=== PATIENT | female | born 1940 | race Caucasian/White ===

== ENCOUNTER 2022-07-20 00:37 | Emergency (ER) | payer MEDICARE ==
[2022-07-20 00:46] VITALS: TEMP 97.7
[2022-07-20] MEDS ORDERED: ASPIRIN 81 MG PO STA (01:04)
[2022-07-20] MEDS ORDERED: LORazepam 2 MG/ML INJ IV STA (01:05)
[2022-07-20 02:20] LABS: Basophils % (A) 0 %; Eosinophils % (A) 0 %; HCT 37.7 % (34.0-46.0); HGB 12.9 gm/dL (11.4-16.0); Lymphocytes # (A) 4.2 k/uL (1.0-4.8); Lymphocytes % (A) 29 %; MCH 30.7 pg (25.0-35.0); MCHC 34.1 g/dL (31.0-37.0); MCV 90.1 fL (80.0-100.0); Mean Platelet Volume 7.9; Monocytes # (A) 0.3 k/uL (0-1.0); Monocytes % (A) 2 %; Neutrophils # (A) 10.1 k/uL (1.3-7.7); Neutrophils % (A) 69 %; Platelet Count 300 k/uL (150-450); RBC 4.19 m/uL (3.80-5.40); RDW 13.5 % (11.5-15.5); WBC 14.7 k/uL (3.8-10.6)
[2022-07-20 02:24] LABS: Albumin 4.3 g/dL (3.5-5.0); Calcium 9.4 mg/dL (8.4-10.2); Magnesium 1.8 mg/dL (1.6-2.3); Potassium 4.2 mmol/L (3.5-5.1); Total Protein 6.8 g/dL (6.3-8.2)
[2022-07-20 02:30] LABS: Partial Thromboplastin Time 22.7 sec (22.0-30.0); Prothrombin Time 10.4 sec (9.0-12.0)
--- NOTE | 2022-07-20 04:40 | ED ---
General Adult HPI - General Chief complaint: Allergic Reaction Stated complaint: Leg Swelling Time Seen by Provider: 07/20/22 00:51 Source: patient Mode of arrival: wheelchair Limitations: no limitations - History of Present Illness Initial comments: Patient is an 82-year-old female presenting with concerns for ALLERGIC reaction. Patient states that earlier this evening she was having a burning rash to the bilateral legs with some swelling to the feet. She also states that she gets a diffuse burning sensation over the body. Patient has been seen in multiple urgent cares and ERs for these symptoms, she has been treated with multiple rounds of steroids and Benadryl. She states that this helps temporarily and then she has another flare up. Of note this started happening about 6 months ago about the time when patient discontinued her Zoloft. She denies any shortness of breath, palpitations, chest pain, abdominal pain, vomiting, numbne ss, tingling, weakness, headache, vision or hearing changes, - Related Data Allergies Allergy/AdvReac Type Severity Reaction Status Date / Time ciprofloxacin [From Cipro] AdvReac Rash/Hives Verified 07/20/22 00:48 nitrofurantoin AdvReac Rash/Hives Verified 07/20/22 00:48 [From Macrobid] Penicillins AdvReac Rash/Hives Verified 07/20/22 00:48 Sulfa (Sulfonamide AdvReac Rash/Hives Verified 07/20/22 00:48 Antibiotics) Review of Systems ROS Statement: Those systems with pertinent positive or pertinent negative responses have been documented in the HPI. ROS Other: All systems not noted in ROS Statement are negative. Past Medical History Past Medical History: Hyperlipidemia, Hypertension Additional Past Medical History / Comment(s): arotic stenosis, hypothyroid History of Any Multi-Drug Resistant Organisms: None Reported Past Surgical History: Cholecystectomy Past Psychological History: Anxiety Smoking Status: Former smoker Past Alcohol Use History: None Reported Past Drug Use History: None Reported General Exam Limitations: no limitations General appearance: alert, anxious Head exam: Present: atraumatic, normocephalic, normal inspection Eye exam: Present: normal appearance, EOMI. Absent: scleral icterus, periorbital swelling Neck exam: Present: normal inspection, tenderness, full ROM Respiratory exam: Present: normal lung sounds bilaterally. Absent: respiratory distress, wheezes, rales, rhonchi, stridor Cardiovascular Exam: Present: regular rate, normal rhythm, normal heart sounds. Absent: systolic murmur, diastolic murmur, rubs, gallop, clicks Extremities exam: Absent: pedal edema Neurological exam: Present: alert, oriented X3, CN II-XII intact Psychiatric exam: Present: normal affect, normal mood Skin exam: Present: warm, dry, intact, normal color. Absent: rash Course Vital Signs 07/20/22 07/20/22 00:40 05:05 Temperature 97.7 F Pulse Rate 52 L 72 Respiratory 18 16 Rate Blood Pressure 147/89 124/76 O2 Sat by Pulse 94 L 94 L Oximetry EKG Findings - EKG Comments: EKG Findings:: Sinus rhythm with occasional ectopic premature complexes. Ventricular rate 82. NC interval 182. QRS 82. QT 363. QTC 401. Left axis deviation. No acute ischemic changes. Medical Decision Making - Medical Decision Making Was pt. sent in by a medical professional or institution (, PA, WELL HEAD PUMPER, urgent care, hospital, or retirement...) When possible be specific @ -No Did you speak to anyone other than the patient for history (EMS, parent, family, police, friend...)? What history was obtained from this source @ -History supplemented by daughter Did you review nursing and triage notes (agree or disagree)? Why? @ -I reviewed and agree with nursing and triage notes Were old charts reviewed (outside hosp., previous admission, EMS record, old EKG, old radiological studies, urgent care reports/EKG's, retirement records)? Report findings @ -No old charts were reviewed Differential Diagnosis (chest pain, altered mental status, abdominal pain women, abdominal pain men, vaginal bleeding, weakness, fever, dyspnea, syncope, headache, dizziness, GI bleed, back pain, seizure, CVA, palpatations, mental health, musculoskeletal)? @ -Differential includes anxiety, ALLERGIC reaction, COPD/asthma exacerbation, ACS, this is not an all inclusive list EKG interpreted by me (3pts min.). @ -As above X-rays interpreted by me (1pt min.). @ -Chest x-ray shows no acute process. There is an elevated left hemidiaphragm with mild basilar atelectasis and no consolidation CT interpreted by me (1pt min.). @ -None done U/S interpreted by me (1pt. min.). @ -None done What testing was considered but not performed or refused? (CT, X-rays, U/S, labs)? Why? @ -None What meds were considered but not given or refused? Why? @ -None Did you discuss the management of the patient with other professionals (professionals i.e. , PA, WELL HEAD PU[employer]ER, lab, RT, psych nurse, psychotherapist social worker, backshoe person, teacher, retail loss prevention officer, case assembler)? Give summary @ -No Was smoking cessation discussed for >3mins.? @ -No Was critical care preformed (if so, how long)? @ -No Were there social determinants of health that impacted care today? How? (Homelessness, low income, unemployed, alcoholism, drug addiction, transportation, low edu. Level, literacy, decrease access to med. care, [facility], rehab)? @ -No Was there de-escalation of care discussed even if they declined (Discuss DNR or withdrawal of care, Hospice)? DNR status @ -No What co-morbidities impacted this encounter? (DM, HTN, Smoking, COPD, CAD, Cancer, CVA, ARF, Chemo, Hep., AIDS, mental health diagnosis, sleep apnea, morbid obesity)? @ -None Was patient admitted / discharged? Hospital course, mention meds given and route, prescriptions, significant lab abnormalities, going to OR and other pertinent info. @ -Patient is an 81-year-old female presenting with chief complaint of burning rash to the legs. On physical examination there is no rash or swelling to the legs. Heart and lungs are clear to auscultation. Patient appears very anxious. She notes that the symptoms started happening around the time when she discontinued her Zoloft. She admits to a burning sensation all over the body including inside of the chest. Chest x-ray shows no acute process. Negative troponin. Mild dehydration and hyponatremia. EKG shows no acute changes. Patient reports resolution of her symptoms after Ativan. Symptoms are likely due to anxiety. Shared decision making is used and patient feels comfortable discharged home at this time. Patient is instructed to follow-up with PCP. Follow-up with PCP. Report back to ER with any new or worsening symptoms. Discussed return parameters and answered all questions. Patient conveyed verbal understanding and agreed to the plan. I discussed this case in detail with my attending Dr. Wharton Undiagnosed new problem with uncertain prognosis? @ -No Drug Therapy requiring intensive monitoring for toxicity (Heparin, Nitro, Insulin, Cardizem)? @ -No Were any procedures done? @ -No Diagnosis/symptom? @ -Anxiety attack Acute, or Chronic, or Acute on Chronic? @ -Acute Uncomplicated (without systemic symptoms) or Complicated (systemic symptoms)? @ -Complicated Side effects of treatment? @ -No Exacerbation, Progression, or Severe Exacerbation? @ -No Poses a threat to life or bodily function? How? (Chest pain, [place], AL, pneumonia, PE, COPD, DKA, ARF, appy, cholecystitis, CVA, Diverticulitis, Homicidal, Suicidal, threat to staff... and all critical care pts) @ -No - Lab Data Result diagrams: 07/20/22 01:32 07/20/22 01:32 Lab Results 07/20/22 07/20/22 07/20/22 Range/Units 01:32 01:32 01:32 WBC 14.7 H (3.8-10.6) k/uL RBC 4.19 (3.80-5.40) m/uL Hgb 12.9 (11.4-16.0) gm/dL Hct 37.7 (34.0-46.0) % MCV 90.1 (80.0-100.0) fL MCH 30.7 (25.0-35.0) pg MCHC 34.1 (31.0-37.0) g/dL RDW 13.5 (11.5-15.5) % Plt Count 300 (150-450) k/uL MPV 7.9 Neutrophils % 69 % Lymphocytes % 29 % Monocytes % 2 % Eosinophils % 0 % Basophils % 0 % Neutrophils # 10.1 H (1.3-7.7) k/uL Lymphocytes # 4.2 (1.0-4.8) k/uL Monocytes # 0.3 (0-1.0) k/uL Eosinophils # 0.0 (0-0.7) k/uL Basophils # 0.0 (0-0.2) k/uL PT 10.4 (9.0-12.0) sec INR 1.0 (<1.2) APTT 22.7 (22.0-30.0) sec Sodium 122 L (137-145) mmol/L Potassium 4.2 (3.5-5.1) mmol/L Chloride 89 L (98-107) mmol/L Carbon Dioxide 19 L (22-30) mmol/L Anion Gap 14 mmol/L BUN 24 H (7-17) mg/dL Creatinine 0.77 (0.52-1.04) mg/dL Est GFR (CKD-EPI)AfAm 84 (>60 ml/min/1.73 sqM) Est GFR (CKD-EPI)NonAf 73 (>60 ml/min/1.73 sqM) Glucose 142 H (74-99) mg/dL Calcium 9.4 (8.4-10.2) mg/dL Magnesium 1.8 (1.6-2.3) mg/dL Total Bilirubin 1.0 (0.2-1.3) mg/dL AST 36 (14-36) U/L ALT 19 (4-34) U/L Alkaline Phosphatase 103 (38-126) U/L Troponin I (0.000-0.034) ng/mL Total Protein 6.8 (6.3-8.2) g/dL Albumin 4.3 (3.5-5.0) g/dL 07/20/22 Range/Units 01:32 WBC (3.8-10.6) k/uL RBC (3.80-5.40) m/uL Hgb (11.4-16.0) gm/dL Hct (34.0-46.0) % MCV (80.0-100.0) fL MCH (25.0-35.0) pg MCHC (31.0-37.0) g/dL RDW (11.5-15.5) % Plt Count (150-450) k/uL MPV Neutrophils % % Lymphocytes % % Monocytes % % Eosinophils % % Basophils % % Neutrophils # (1.3-7.7) k/uL Lymphocytes # (1.0-4.8) k/uL Monocytes # (0-1.0) k/uL Eosinophils # (0-0.7) k/uL Basophils # (0-0.2) k/uL PT (9.0-12.0) sec INR (<1.2) APTT (22.0-30.0) sec Sodium (137-145) mmol/L Potassium (3.5-5.1) mmol/L Chloride (98-107) mmol/L Carbon Dioxide (22-30) mmol/L Anion Gap mmol/L BUN (7-17) mg/dL Creatinine (0.52-1.04) mg/dL Est GFR (CKD-EPI)AfAm (>60 ml/min/1.73 sqM) Est GFR (CKD-EPI)NonAf (>60 ml/min/1.73 sqM) Glucose (74-99) mg/dL Calcium (8.4-10.2) mg/dL Magnesium (1.6-2.3) mg/dL Total Bilirubin (0.2-1.3) mg/dL AST (14-36) U/L ALT (4-34) U/L Alkaline Phosphatase (38-126) U/L Troponin I <0.012 (0.000-0.034) ng/mL Total Protein (6.3-8.2) g/dL Albumin (3.5-5.0) g/dL Disposition Clinical Impression: Anxiety attack Disposition: HOME SELF-CARE Condition: Good Instructions (If sedation given, give patient instructions): Anxiety (ED) Additional Instructions: Follow-up with PCP. Report back to ER with any new or worsening symptoms. Is patient prescribed a controlled substance at d/c from ED?: No Referrals: Carlos Moon DO [Primary Care Provider] - 1-2 days Time of Disposition: 04:40
[2022-07-20 05:06] VITALS: BP 124/76; PULSE 72; RESP 16
--- NOTE | 2022-07-20 06:53 | XR ---
EXAM: XR Chest, 2 Views CLINICAL HISTORY: ITS.REASON XR Reason: Chest Pain TECHNIQUE: Frontal and lateral views of the chest. COMPARISON: No relevant prior studies available. FINDINGS: Lungs: Elevated left hemidiaphragm with mild left base atelectasis. No consolidation. Pleural space: Unremarkable. No pneumothorax. Heart: Unremarkable. No cardiomegaly. Mediastinum: Unremarkable. Bones/joints: Unremarkable. IMPRESSION: Elevated left hemidiaphragm with mild left base atelectasis.
== END 2022-07-20 05:15 | disposition home or self-care (01) ==
LOC: SUPCPDRO 00:37 → EC 00:37
DX: F41.0 Panic disorder [episodic paroxysmal anxiety] (principal); I10 Essential (primary) hypertension; Z87.891 Personal history of nicotine dependence; Z88.0 Allergy status to penicillin; Z88.1 Allergy status to other antibiotic agents; Z88.2 Allergy status to sulfonamides; Z90.49 Acquired absence of other specified parts of digestive tract
CPT/HCPCS: 36415; 93005; 80053; 83735; 84484; 85025; 85610; 85730; 71046; 99284; 96374; J2060

== ENCOUNTER 2022-08-10 13:08 | Inpatient (IN) | payer MEDICARE ==
[2022-08-10 14:25] LABS: Basophils % (A) 0 %; Eosinophils % (A) 0 %; HCT 35.7 % (34.0-46.0); HGB 12.4 gm/dL (11.4-16.0); Lymphocytes # (A) 5.3 k/uL (1.0-4.8); MCH 32.3 pg (25.0-35.0); MCHC 34.9 g/dL (31.0-37.0); MCV 92.7 fL (80.0-100.0); Mean Platelet Volume 6.7; Monocytes # (A) 0.7 k/uL (0-1.0); Monocytes % (A) 6 %; Neutrophils # (A) 4.5 k/uL (1.3-7.7); Neutrophils % (A) 42 %; Platelet Count 288 k/uL (150-450); RBC 3.85 m/uL (3.80-5.40); WBC 10.8 k/uL (3.8-10.6)
[2022-08-10 14:36] LABS: Lactic Acid, Venous 1.6 mmol/L (0.7-2.0)
[2022-08-10 14:38] LABS: ALT 18 U/L (4-34); AST 34 U/L (14-36); African American GFR (CKD) >90 (>60 ml/min/1.73 sqM); Albumin 4.2 g/dL (3.5-5.0); Alkaline Phosphatase 109 U/L (38-126); Anion Gap 8 mmol/L; Blood Urea Nitrogen 14 mg/dL (7-17); Calcium 9.6 mg/dL (8.4-10.2); Carbon Dioxide 26 mmol/L (22-30); Chloride 88 mmol/L (98-107); Glucose 96 mg/dL (74-99); Magnesium 1.8 mg/dL (1.6-2.3); Non-African American GFR(CKD) 82 (>60 ml/min/1.73 sqM); Potassium 4.5 mmol/L (3.5-5.1); Sodium 122 mmol/L (137-145); Total Bilirubin 0.5 mg/dL (0.2-1.3); Total Protein 6.4 g/dL (6.3-8.2)
[2022-08-10 14:45] LABS: Lymphocytes % (A) 49 %
--- NOTE | 2022-08-10 14:46 | CT ---
EXAMINATION TYPE: CT brain wo con DATE OF EXAM: 08/10/2022 HISTORY: Weakness. CT DLP: 1173.4 mGycm. Automated Exposure Control for Dose Reduction was Utilized. TECHNIQUE: CT scan of the head is performed without contrast. COMPARISON: None. FINDINGS: There is no acute intracranial hemorrhage or midline shift identified. There is mild to m oderate diffuse ventricular and sulcal prominence consistent with diffuse age-related cerebral atroph y. There is fairly advanced low-attenuation in the periventricular white matter most likely consiste nt with chronic small vessel ischemic change in patient of this age. Hyperostosis frontalis is seen. The globes are intact and the visualized sinuses are clear. IMPRESSION: No acute intracranial hemorrhage or midline shift. There is mild to moderate diffuse ag e-related cerebral atrophy and moderate to severe probable chronic small vessel ischemic change noted .
--- NOTE | 2022-08-10 15:01 | XR ---
EXAMINATION TYPE: XR chest 2V DATE OF EXAM: 08/10/2022 COMPARISON: Chest x-ray July 20, 2022 HISTORY: Weakness. TECHNIQUE: Frontal and lateral views of the chest are obtained. FINDINGS: Chronic right pleural changes bilaterally with left basilar opacity remains present. The cardiac silhouette size is stable and within normal limits. Surgical clips left upper quadrant just b elow diaphragm are redemonstrated. Cholecystectomy clips are redemonstrated. The osseous structures remain demineralized. Underlying scoliosis again seen. IMPRESSION: Chronic changes with small left pleural effusion and left basilar opacity could reflect atelectasis and/or scarring. Right lung remains clear. No significant change from most recent x-ray.
[2022-08-10 15:04] LABS: Partial Thromboplastin Time 24.1 sec (22.0-30.0); Prothrombin Time 10.4 sec (9.0-12.0)
[2022-08-10 16:11] LABS: Appearance,Urine Clear (Clear); Bilirubin,Urine Negative (Negative); Blood,Urine Negative (Negative); Color,Urine Light Yellow; Glucose,Urine (UA) Negative (Negative); Ketones,Urine Negative (Negative); Leukocyte Esterase,Urine Negative (Negative); Nitrite,Urine Negative (Negative); Protein,Urine Negative (Negative); Specific Gravity,Urine 1.007 (1.001-1.035); Urobilinogen,Urine <2.0 mg/dL (<2.0)
[2022-08-10] MEDS ORDERED: SODIUM CHLORIDE 0.9% 1,000 ML IV STA ×2 (16:47)
[2022-08-10] MEDS ORDERED: NALOXONE 0.4 MG/ML 1 ML VIAL IV PRN (16:48)
[2022-08-10] MEDS ORDERED: ALBUTEROL NEBULIZED 2.5 MG/3 ML INHALATION PRN (16:49)
--- NOTE | 2022-08-10 16:54 | ED ---
General Adult HPI - General Chief complaint: Weakness Stated complaint: Abnormal Labs Time Seen by Provider: 08/10/22 14:00 Source: patient, family, RN notes reviewed, old records reviewed Mode of arrival: ambulatory Limitations: no limitations - History of Present Illness Initial comments: Patient is an 82-year-old female who presents emergency Department after he brought in by family members for hyponatremia. Patient has also had progressive memory issues as well as weakness. She is been hyponatremic for a while now since be getting worse which is why her PCP sent her in for further evaluation and admission. The remaining symptoms are all progressive been somewhat chronic. Patient denies any other acute complaints at this time. Patient's daughter is at bedside and helps with history. Presents for further evaluation at this time. Somewhat decreased appetite. - Related Data Home Medications Medication Instructions Recorded Confirmed Albuterol Sulfate [Albuterol 2 puff PO RT-Q6H PRN 08/10/22 08/10/22 Sulfate Hfa] Atorvastatin [Lipitor] 40 mg PO HS 08/10/22 08/10/22 Enalapril Maleate 10 mg PO DAILY 08/10/22 08/10/22 Levothyroxine Sodium [Synthroid] 100 mcg PO DAILY 08/10/22 08/10/22 Meloxicam [Mobic] 7.5 mg PO DAILY 08/10/22 08/10/22 Metoprolol Succinate (ER) [Toprol 25 mg PO DAILY 08/10/22 08/10/22 Xl] Montelukast [Singulair] 10 mg PO HS 08/10/22 08/10/22 Omeprazole [PriLOSEC] 20 mg PO DAILY 08/10/22 08/10/22 Sertraline [Zoloft] 50 mg PO DAILY 08/10/22 08/10/22 Umeclidinium Brm/Vilanterol Tr 1 puff INHALATION RT-DAILY 08/10/22 08/10/22 [Anoro Ellipta 62.5-25 Mcg INH] amLODIPine [Norvasc] 5 mg PO DAILY 08/10/22 08/10/22 Allergies Allergy/AdvReac Type Severity Reaction Status Date / Time ciprofloxacin [From Cipro] AdvReac Rash/Hives Verified 08/10/22 15:19 nitrofurantoin AdvReac Rash/Hives Verified 08/10/22 15:19 [From Macrobid] Penicillins AdvReac Rash/Hives Verified 08/10/22 15:19 Sulfa (Sulfonamide AdvReac Rash/Hives Verified 08/10/22 15:19 Antibiotics) Review of Systems ROS Statement: Those systems with pertinent positive or pertinent negative responses have been documented in the HPI. Review of Systems: CONST: Denies fever EYES: Denies blurry vision ENT: Denies nasal congestion C/V: Denies Chest pain RESP: Denies shortness of breath GI: Denies abdominal pain : Denies dysuria SKIN: Denies rash. MSK: Denies joint pain. NEURO: Denies headache ROS Other: All systems not noted in ROS Statement are negative. Past Medical History Past Medical History: Hyperlipidemia, Hypertension, Thyroid Disorder Additional Past Medical History / Comment(s): arotic stenosis, hypothyroid History of Any Multi-Drug Resistant Organisms: None Reported Past Surgical History: Cholecystectomy Past Psychological History: Anxiety Smoking Status: Former smoker Past Alcohol Use History: None Reported Past Drug Use History: None Reported General Exam - General Exam Comments Initial Comments: General: Appears in no acute distress. HEAD: Normal with no signs of head trauma. EYES: PERRLA, EOMI, conjunctiva normal, no discharge. Pupils 3 mm and equal bilaterally. ENT: Hearing grossly intact, normal oropharynx. RESPIRATORY: Clear breath sounds bilaterally. No wheezes, rales, or rhonchi. C/V: Regular rate and rhythm. S1 and S2 auscultated, peripheral pulses 2+ and intact throughout ABD: Abd is soft, nontender, nondistended EXT: Normal range of motion, no obvious deformity SKIN: No rashes or lesions observed on exposed skin. NEURO: Alert and oriented x 3. Cranial nerves II-XII intact. No focal sensory or strength deficits. GCS of 15. NIH of 0. Limitations: no limitations Course Vital Signs 08/10/22 08/10/22 08/10/22 13:16 15:38 18:13 Temperature 98.1 F Pulse Rate 59 L 60 58 L Respiratory 18 18 18 Rate Blood Pressure 114/68 123/71 129/71 O2 Sat by Pulse 98 98 100 Oximetry Medical Decision Making - Medical Decision Making Was pt. sent in by a medical professional or institution (, PA, LOG TURNER, urgent care, hospital, or long-term...) When possible be specific @ -Sent in by PCP for evaluation for hyponatremia Did you speak to anyone other than the patient for history (EMS, parent, family, police, friend...)? What history was obtained from this source @ -Patient's daughter is the primary historian for the patient. Did you review nursing and triage notes (agree or disagree)? Why? @ -I reviewed and agree with nursing and triage notes Were old charts reviewed (outside hosp., previous admission, EMS record, old EKG, old radiological studies, urgent care reports/EKG's, long-term records)? Report findings @ -Old charts reviewed from earlier July 2022 including EKG. Differential Diagnosis (chest pain, altered mental status, abdominal pain women, abdominal pain men, vaginal bleeding, weakness, fever, dyspnea, syncope, headache, dizziness, GI bleed, back pain, seizure, CVA, palpatations, mental health, musculoskeletal)? @ -Differential Weakness: Hypoglycemia, shock, sepsis, hyponatremia, anemia, infection, HI, ETOH, adverse medicine reaction, overdose, stroke, this is not meant to be an all-inclusive list. EKG interpreted by me (3pts min.). @ -As above X-rays interpreted by me (1pt min.). @ -Chest x-ray reveals no obvious acute cardiopulmonary process. Chronic changes seen. CT interpreted by me (1pt min.). @ -ct brain reveals no obvious acute intracranial process. Degenerative changes present. U/S interpreted by me (1pt. min.). @ -None done What testing was considered but not performed or refused? (CT, X-rays, U/S, labs)? Why? @ -None What meds were considered but not given or refused? Why? @ -None Did you discuss the management of the patient with other professionals (pro fessionals i.e. , PA, LOG TURNER, lab, RT, psych nurse, high school social studies teacher, industrial ecologist, teacher, transit authority police officer, nurse outreach case manager)? Give summary @ -Discussed with the admitting team Aleyda greer [facility] she accepted the patient. Was smoking cessation discussed for >3mins.? @ -No Was critical care preformed (if so, how long)? @ -No Were there social determinants of health that impacted care today? How? (Home lessness, low income, unemployed, alcoholism, drug addiction, transportation, low edu. Level, literacy, decrease access to med. care, [facility], rehab)? @ -No Was there de-escalation of care discussed even if they declined (Discuss DNR or withdrawal of care, Hospice)? DNR status @ -No What co-morbidities impacted this encounter? (DM, HTN, Smoking, COPD, CAD, Cancer, CVA, ARF, Chemo, Hep., AIDS, mental health diagnosis, sleep apnea, morbid obesity)? @ -None Was patient admitted / discharged? Hospital course, mention meds given and route, prescriptions, significant lab abnormalities, going to OR and other pertinent info. 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 We will obtain altered mental status workup including CT brain. Vital signs within acceptable limits. Patient is no acute point at this time. Family and patient were in agreement this plan. EKG shows no signs of acute ischemia. Imaging shows chronic CT brain degene rative findings but no acute intracranial process. Patient's labs are remarkable for a hyponatremia of 122. Hypochloremia of 88. Troponin undetectable. Remainder the labs are within acceptable limits. Slight leukocytosis of 14. On reevaluation, patient is unchanged. I updated family as well as patient regarding findings. Family was in agreement with this plan. She will be admitted at this time. Discussed some of the mental status changes likely progressive dementia. I spoke with Aleyda of [facility] who accepted the patient. She'll be given a 1 L fluid bolus and started on maintenance fluids. Undiagnosed new problem with uncertain prognosis? @ -No Drug Therapy requiring intensive monitoring for toxicity (Heparin, Nitro, Insu miriam, Cardizem)? @ -No Were any procedures done? @ -No Diagnosis/symptom? @ -Weakness, hyponatremia Acute, or Chronic, or Acute on Chronic? @ -Acute on chronic Uncomplicated (without systemic symptoms) or Complicated (systemic symptoms)? @ -Complicated Side effects of treatment? @ -No Exacerbation, Progression, or Severe Exacerbation? @ -No Poses a threat to life or bodily function? How? (Chest pain, USA, HI, pneumonia, PE, COPD, DKA, ARF, appy, cholecystitis, CVA, Diverticulitis, Homicidal, Suicidal, threat to staff... and all critical care pts) @ -Potentially if hyponatremia is untreated. - Lab Data Result diagrams: 08/10/22 14:06 08/10/22 14:06 Lab Results 08/10/22 08/10/22 08/10/22 Range/Units 14:06 14:06 14:06 WBC 10.8 H (3.8-10.6) k/uL RBC 3.85 (3.80-5.40) m/uL Hgb 12.4 (11.4-16.0) gm/dL Hct 35.7 (34.0-46.0) % MCV 92.7 (80.0-100.0) fL MCH 32.3 (25.0-35.0) pg MCHC 34.9 (31.0-37.0) g/dL RDW 13.0 (11.5-15.5) % Plt Count 288 (150-450) k/uL MPV 6.7 Neutrophils % 42 % Lymphocytes % 49 % Monocytes % 6 % Eosinophils % 0 % Basophils % 0 % Neutrophils # 4.5 (1.3-7.7) k/uL Lymphocytes # 5.3 H (1.0-4.8) k/uL Monocytes # 0.7 (0-1.0) k/uL Eosinophils # 0.0 (0-0.7) k/uL Basophils # 0.0 (0-0.2) k/uL PT 10.4 (9.0-12.0) sec INR 1.0 (<1.2) APTT 24.1 (22.0-30.0) sec Sodium (137-145) mmol/L Potassium (3.5-5.1) mmol/L Chloride (98-107) mmol/L Carbon Dioxide (22-30) mmol/L Anion Gap mmol/L BUN (7-17) mg/dL Creatinine (0.52-1.04) mg/dL Est GFR (CKD-EPI)AfAm (>60 ml/min/1.73 sqM) Est GFR (CKD-EPI)NonAf (>60 ml/min/1.73 sqM) Glucose (74-99) mg/dL Plasma Lactic Acid Jin (0.7-2.0) mmol/L Calcium (8.4-10.2) mg/dL Magnesium (1.6-2.3) mg/dL Total Bilirubin (0.2-1.3) mg/dL AST (14-36) U/L ALT (4-34) U/L Alkaline Phosphatase (38-126) U/L Ammonia (<30) umol/L Troponin I (0.000-0.034) ng/mL Total Protein (6.3-8.2) g/dL Albumin (3.5-5.0) g/dL Urine Color Light Yellow Urine Appearance Clear (Clear) Urine pH 6.0 (5.0-8.0) Ur Specific [place] 1.007 (1.001-1.035) Urine Protein Negative (Negative) Urine Glucose (UA) Negative (Negative) Urine Ketones Negative (Negative) Urine Blood Negative (Negative) Urine Nitrite Negative (Negative) Urine Bilirubin Negative (Negative) Urine Urobilinogen <2.0 (<2.0) mg/dL Ur Leukocyte Esterase Negative (Negative) 08/10/22 08/10/22 08/10/22 Range/Units 14:06 14:06 14:06 WBC (3.8-10.6) k/uL RBC (3.80-5.40) m/uL Hgb (11.4-16.0) gm/dL Hct (34.0-46.0) % MCV (80.0-100.0) fL MCH (25.0-35.0) pg MCHC (31.0-37.0) g/dL RDW (11.5-15.5) % Plt Count (150-450) k/uL MPV Neutrophils % % Lymphocytes % % Monocytes % % Eosinophils % % Basophils % % Neutrophils # (1.3-7.7) k/uL Lymphocytes # (1.0-4.8) k/uL Monocytes # (0-1.0) k/uL Eosinophils # (0-0.7) k/uL Basophils # (0-0.2) k/uL PT (9.0-12.0) sec INR (<1.2) APTT (22.0-30.0) sec Sodium 122 L (137-145) mmol/L Potassium 4.5 (3.5-5.1) mmol/L Chloride 88 L (98-107) mmol/L Carbon Dioxide 26 (22-30) mmol/L Anion Gap 8 mmol/L BUN 14 (7-17) mg/dL Creatinine 0.68 (0.52-1.04) mg/dL Est GFR (CKD-EPI)AfAm >90 (>60 ml/min/1.73 sqM) Est GFR (CKD-EPI)NonAf 82 (>60 ml/min/1.73 sqM) Glucose 96 (74-99) mg/dL Plasma Lactic Acid Jin 1.6 (0.7-2.0) mmol/L Calcium 9.6 (8.4-10.2) mg/dL Magnesium 1.8 (1.6-2.3) mg/dL Total Bilirubin 0.5 (0.2-1.3) mg/dL AST 34 (14-36) U/L ALT 18 (4-34) U/L Alkaline Phosphatase 109 (38-126) U/L Ammonia <9 (<30) umol/L Troponin I <0.012 (0.000-0.034) ng/mL Total Protein 6.4 (6.3-8.2) g/dL Albumin 4.2 (3.5-5.0) g/dL Urine Color Urine Appearance (Clear) Urine pH (5.0-8.0) Ur Specific [place] (1.001-1.035) Urine Protein (Negative) Urine Glucose (UA) (Negative) Urine Ketones (Negative) Urine Blood (Negative) Urine Nitrite (Negative) Urine Bilirubin (Negative) Urine Urobilinogen (<2.0) mg/dL Ur Leukocyte Esterase (Negative) - EKG Data -: EKG Interpreted by Me EKG Comments: 12-lead Electrocardiogram Interpretation Note EKG was reviewed and interpreted by myself. 12-lead ECG performed at 1417 is interpreted by me as revealing sinus bradycardia at a rate of 58 beats per minute. Left axis deviation. [place] interval is 208 ms, QRS durations 105 ms, QTc is 389 ms.. There were no acute ST or T wave abnormalities to suggest myocardial ischemia or injury. Chronic T wave inversions in lead III. R wave progression across the precordium was was delayed. By my interpretation this EKG is non-diagnostic for acute ischemia. When compared with EKG from 07/20/2022, no significant change. Disposition Clinical Impression: Weakness, Hyponatremia Disposition: ADMITTED IP TO THIS [facility] Condition: Stable Time of Disposition: 16:10
[2022-08-10] MEDS: HEPARIN SODIUM,PORCINE/PF 5,000 UNIT/0.5 ML SYRINGE SQ SCH (21:04)
[2022-08-10] MEDS: MONTELUKAST 10 MG TAB PO SCH (21:05)
[2022-08-10] MEDS: ATORVASTATIN 40 MG TAB PO SCH (21:05)
[2022-08-11] MEDS: LEVOTHYROXINE 100 MCG TAB PO SCH (05:55)
[2022-08-11] MEDS: amLODIPine 5 MG TAB PO SCH (08:32)
[2022-08-11] MEDS: HEPARIN SODIUM,PORCINE/PF 5,000 UNIT/0.5 ML SYRINGE SQ SCH ×2 (08:32→21:30)
[2022-08-11] MEDS: lisinopriL 20 MG TAB PO SCH (08:32)
[2022-08-11] MEDS: SERTRALINE 50 MG TAB PO SCH (08:32)
[2022-08-11] MEDS: PANTOPRAZOLE 40 MG TABLET PO SCH (08:32)
[2022-08-11] MEDS: METOPROLOL SUCCINATE (ER) 25 MG TAB.ER.24H PO SCH (08:32)
[2022-08-11] MEDS: IPRATROPIUM 0.5 MG/2.5 ML NEBU INHALATION SCH ×4 (09:32→20:20)
[2022-08-11] MEDS: FORMOTEROL FUMARATE 20 MCG/2 ML NEBU INHALATION SCH ×2 (09:32→20:19)
[2022-08-11 10:13] LABS: African American GFR (CKD) 94.2 (60.0-200.0); Anion Gap 9.9 mmol/L (10.00-18.00); Blood Urea Nitrogen 9.1 mg/dL (9.0-27.0); Calcium 9.8 mg/dL (8.7-10.3); Carbon Dioxide 25.1 mmol/L (20.0-27.5); Non-African American GFR(CKD) 81.3 (60.0-200.0); Potassium 4.9 mmol/L (3.5-5.5)
[2022-08-11 10:16] LABS: HGB 11.1 g/dL (12.0-15.0); MCH 31.4 pg (27.0-32.0); MCHC 33.6 g/dL (32.0-37.0); MCV 93.2 fL (80.0-97.0); Mean Platelet Volume 8.6 fL (9.5-12.2); NRBC Per 100 WBC 0 /100 WBCS (0.0-0.0); Platelet Count 239 X 10*3/uL (140-440); RBC 3.54 X 10*6/uL (4.10-5.20); RDW 13.4 % (11.5-14.5); WBC 9.06 X 10*3/uL (4.50-10.00)
[2022-08-11 13:03] LABS: Basophils # (M) 0 X 10*3/uL (0.00-0.10); Eosinophils # (M) 0.18 X 10*3/uL (0.04-0.35); Monocytes # (M) 0.27 X 10*3/uL (0.20-1.00); Neutrophils # (M) 3.81 X 10*3/uL (2.00-8.90); Neutrophils % (M) 42 %
--- NOTE | 2022-08-11 19:37 | P.HPIM ---
History of Present Illness H&P Date: 08/10/22 82-year-old female who presents emergency Department after he brought in by family members for hyponatremia. Patient has also had progressive memory issues as well as weakness. She is been hyponatremic for a while now since be getting worse which is why her PCP sent her in for further evaluation and admission. The remaining symptoms are all progressive been somewhat chronic. Patient denies any other acute complaints at this time. Patient's daughter is at bedside and helps with history. Presents for further evaluation at this time. Somewhat decreased appetite. Workup completed in ED EKG shows no signs of [address] of the brain was completed with no acute intracranial process Blood work reveals a sodium level of 122 and chloride of 88; slightly elevated white blood count of 14 - Patient received 1 L of normal saline in ED and is admitted for further treatment of hyponatremia Review of Systems REVIEW OF SYSTEMS: CONSTITUTIONAL: No fever, no malaise, no fatigue. HEENT: No recent visual problems or hearing problems. Denied any sore throat. CARDIOVASCULAR: No chest pain, orthopnea, PND, no palpitations, no syncope. PULMONARY: No shortness of breath, no cough, no hemoptysis. GASTROINTESTINAL: No diarrhea, no nausea, no vomiting, no abdominal pain. NEUROLOGICAL: No headaches, no weakness, no numbness. HEMATOLOGICAL: Denies any bleeding or petechiae. GENITOURINARY: Denies any burning micturition, frequency, or urgency. MUSCULOSKELETAL/RHEUMATOLOGICAL: Denies any joint pain, swelling, or any muscle pain. ENDOCRINE: Denies any polyuria or polydipsia. The rest of the 14-point review of systems is negative. Past Medical History Past Medical History: Hyperlipidemia, Hypertension, Thyroid Disorder Additional Past Medical History / Comment(s): arotic stenosis, hypothyroid History of Any Multi-Drug Resistant Organisms: None Reported Past Surgical History: Cholecystectomy Additional Past Surgical History / Comment(s): Esophageal surgery at [facility] (2014) Past Anesthesia/Blood Transfusion Reactions: No Reported Reaction Past Psychological History: Anxiety Smoking Status: Former smoker Past Alcohol Use History: None Reported Past Drug Use History: None Reported Medications and Allergies Home Medications Medication Instructions Recorded Confirmed Type Albuterol Sulfate [Albuterol 2 puff PO RT-Q6H PRN 08/10/22 08/10/22 History Sulfate Hfa] Atorvastatin [Lipitor] 40 mg PO HS 08/10/22 08/10/22 History Enalapril Maleate 10 mg PO DAILY 08/10/22 08/10/22 History Levothyroxine Sodium [Synthroid] 100 mcg PO DAILY 08/10/22 08/10/22 History Meloxicam [Mobic] 7.5 mg PO DAILY 08/10/22 08/10/22 History Metoprolol Succinate (ER) [Toprol 25 mg PO DAILY 08/10/22 08/10/22 History Xl] Montelukast [Singulair] 10 mg PO HS 08/10/22 08/10/22 History Omeprazole [PriLOSEC] 20 mg PO DAILY 08/10/22 08/10/22 History Sertraline [Zoloft] 50 mg PO DAILY 08/10/22 08/10/22 History Umeclidinium Brm/Vilanterol Tr 1 puff INHALATION RT-DAILY 08/10/22 08/10/22 History [Anoro Ellipta 62.5-25 Mcg INH] amLODIPine [Norvasc] 5 mg PO DAILY 08/10/22 08/10/22 History Allergies Allergy/AdvReac Type Severity Reaction Status Date / Time ciprofloxacin [From Cipro] AdvReac Rash/Hives Verified 08/10/22 15:19 nitrofurantoin AdvReac Rash/Hives Verified 08/10/22 15:19 [From Macrobid] Penicillins AdvReac Rash/Hives Verified 08/10/22 15:19 Sulfa (Sulfonamide AdvReac Rash/Hives Verified 08/10/22 15:19 Antibiotics) Physical Exam Vitals: Vital Signs Temp Pulse Pulse Resp BP BP Pulse Ox 08/10/22 19:50 98.2 F 57 L 16 134/78 97 08/10/22 18:47 98.1 F 62 17 149/64 98 08/10/22 18:13 58 L 18 129/71 100 08/10/22 15:38 60 18 123/71 98 08/10/22 13:16 98.1 F 59 L 18 114/68 98 Intake and Output 08/10/22 08/10/22 08/11/22 14:59 22:59 06:59 Other: Voiding Method Bedside Commode Weight 49.442 kg 49.442 kg PHYSICAL EXAMINATION: GENERAL: The patient is alert and oriented x3, not in any acute distress. Well developed, well nourished. HEENT: Pupils are round and equally reacting to light. EOMI. No scleral icterus. No conjunctival pallor. Normocephalic, atraumatic. No pharyngeal erythema. No thyromegaly. CARDIOVASCULAR: S1 and S2 present. No murmurs, rubs, or gallops. PULMONARY: Chest is clear to auscultation, no wheezing or crackles. ABDOMEN: Soft, nontender, nondistended, normoactive bowel sounds. No palpable organomegaly. MUSCULOSKELETAL: No joint swelling or deformity. EXTREMITIES: No cyanosis, clubbing, or pedal edema. NEUROLOGICAL: Gross neurological examination did not reveal any focal deficits. SKIN: No rashes. Results CBC & Chem 7: 08/11/22 05:55 08/11/22 05:55 Labs: Abnormal Lab Results - Last 24 Hours (Table) 08/10/22 08/10/22 Range/Units 14:06 14:06 WBC 10.8 H (3.8-10.6) k/uL Lymphocytes # 5.3 H (1.0-4.8) k/uL Sodium 122 L (137-145) mmol/L Chloride 88 L (98-107) mmol/L Thrombosis Risk Factor Assmnt - Choose All That Apply Any of the Below Risk Factors Present?: Yes Each Factor Represents 1 point: Medical pt on bed rest Each Risk Factor Represents 3 Points: Age 75 years or older Thrombosis Risk Factor Assessment Total Risk Factor Score: 4 Thrombosis Risk Factor Assessment Level: Moderate Risk Assessment and Plan Assessment: 1. Weakness/altered mental status/metabolic encephalopathy - Likely related to advancing dementia versus electrolyte imbalance - CT of the brain is completed and is negative for any acute process 2. Electrolyte imbalance/hyponatremia; patient has been placed on IV fluids in form of normal saline; we will monitor strict KIRSTEN's, daily weights, renal func tion and electrolytes -- We will initiate some workup if sodium level continues to drop 3. Leukocytosis; white blood count is slightly elevated at 10.8; patient remains afebrile without any signs of infection; lactic acid is normal at 1.6 and UA is negative - We will monitor CBC closely with plans to initiate sepsis workup if white blood count remains elevated 4. Hypertension; stable on home dose of enalapril 10 mg daily, metoprolol 25 mg daily and Norvasc 5 mg daily 5. Hyperlipidemia; Lipitor 40 mg 2 daily at bedtime 6. Hypothyroidism; levothyroxin 100 MCG daily 7. COPD/asthma; not in exacerbation; continue immunotherapy
[2022-08-11] MEDS: ATORVASTATIN 40 MG TAB PO SCH (21:30)
[2022-08-11] MEDS: MONTELUKAST 10 MG TAB PO SCH (21:30)
[2022-08-12] MEDS: LEVOTHYROXINE 100 MCG TAB PO SCH (06:28)
[2022-08-12] MEDS: HEPARIN SODIUM,PORCINE/PF 5,000 UNIT/0.5 ML SYRINGE SQ SCH ×2 (08:01→21:43)
[2022-08-12] MEDS: amLODIPine 5 MG TAB PO SCH (08:01)
[2022-08-12] MEDS: lisinopriL 20 MG TAB PO SCH (08:01)
[2022-08-12] MEDS: IPRATROPIUM 0.5 MG/2.5 ML NEBU INHALATION SCH ×4 (08:02→19:32)
[2022-08-12] MEDS: METOPROLOL SUCCINATE (ER) 25 MG TAB.ER.24H PO SCH (08:02)
[2022-08-12] MEDS: PANTOPRAZOLE 40 MG TABLET PO SCH (08:02)
[2022-08-12] MEDS: SERTRALINE 50 MG TAB PO SCH (08:02)
[2022-08-12] MEDS: FORMOTEROL FUMARATE 20 MCG/2 ML NEBU INHALATION SCH ×2 (08:02→19:32)
[2022-08-12 09:17] LABS: Anion Gap 10.6 mmol/L (10.00-18.00); BUN/Creat Ratio 9.5 Ratio (12.00-20.00); Blood Urea Nitrogen 7.2 mg/dL (9.0-27.0); Calcium 9.3 mg/dL (8.7-10.3); Carbon Dioxide 21.7 mmol/L (20.0-27.5); Non-African American GFR(CKD) 73.3 (60.0-200.0)
[2022-08-12 11:16] LABS: HCT 31.5 % (37.2-46.3); HGB 10.6 g/dL (12.0-15.0); MCH 31.3 pg (27.0-32.0); MCHC 33.7 g/dL (32.0-37.0); MCV 92.9 fL (80.0-97.0); Mean Platelet Volume 8.9 fL (9.5-12.2); NRBC Per 100 WBC 0 /100 WBCS (0.0-0.0); Platelet Count 251 X 10*3/uL (140-440); RBC 3.39 X 10*6/uL (4.10-5.20); RDW 13.5 % (11.5-14.5); WBC 9.56 X 10*3/uL (4.50-10.00)
[2022-08-12 12:12] LABS: Basophils # (A) 0.05 X 10*3/uL (0.00-0.10); Basophils % (A) 0.5 %; Eosinophils # (A) 0.06 X 10*3/uL (0.04-0.35); Eosinophils % (A) 0.6 %; Immature Grans, Automated 0.4 %; Lymphocytes # (A) 5.49 X 10*3/uL (0.90-5.00); Lymphocytes % (A) 57.4 %; Monocytes # (A) 0.71 X 10*3/uL (0.20-1.00); Monocytes % (A) 7.4 %; Neutrophils # (A) 3.21 X 10*3/uL (1.80-7.70); Neutrophils % (A) 33.7 %
[2022-08-12 12:13] LABS: Crenated RBC 2+; Elliptocytes 2+
[2022-08-12] MEDS: SODIUM CHLORIDE 0.9% 1,000 ML IV SCH (12:15)
--- NOTE | 2022-08-12 18:19 | P.PN ---
Subjective Progress Note Date: 08/12/22 82-year-old female who presents emergency Department after he brought in by family members for hyponatremia. Patient has also had progressive memory issues as well as weakness. She is been hyponatremic for a while now since be getting worse which is why her PCP sent her in for further evaluation and admission. The remaining symptoms are all progressive been somewhat chronic. Patient denies any other acute complaints at this time. Patient's daughter is at bedside and helps with history. Presents for further evaluation at this time. Somewhat decreased appetite. Workup completed in ED EKG shows no signs of [address] of the brain was completed with no acute intracranial process Blood work reveals a sodium level of 122 and chloride of 88; slightly elevated white blood count of 14 - Patient received 1 L of normal saline in ED and is admitted for further treatment of hyponatremia 24-hour interval change 08/12/2022 Patient is seen and evaluated in room at bedside; discussed with nursing staff; no new complaints reported Vital signs are reviewed and remained stable with temperature of 98.3, pulse 60, respirations 16 and blood pressure soft at 98/58, O2 saturation 95% on room air Lab review shows WBC 9.5, hemoglobin 10.6 and platelet count of 251, sodium is down to 126 from 128 yesterday, potassium 4.0, BUN/creatinine of 7.2/0.8 - We will start patient on IV fluids in form of normal saline at a rate of 75 mL an hour; monitor blood pressure leg lites closely - PT/OT and case management is consulted Objective - Vital Signs Vital signs: Vital Signs Temp 98.0 F 08/12/22 07:32 Pulse 57 L 08/12/22 08:18 Resp 16 08/12/22 08:00 BP 133/69 08/12/22 07:32 Pulse Ox 97 08/12/22 07:32 FiO2 Intake & Output 08/11/22 08/12/22 08/12/22 18:59 06:59 18:59 Intake Total 360 590 Balance 360 590 Intake: Oral 360 590 Other: Voiding Method Bedside Commode Toilet Toilet # Voids 3 3 1 # Bowel Movements 1 - Exam PHYSICAL EXAMINATION: GENERAL: The patient is alert and oriented x3, not in any acute distress. Well developed, well nourished. HEENT: Pupils are round and equally reacting to light. EOMI. No scleral icterus. No conjunctival pallor. Normocephalic, atraumatic. No pharyngeal erythema. No thyromegaly. CARDIOVASCULAR: S1 and S2 present. No murmurs, rubs, or gallops. PULMONARY: Chest is clear to auscultation, no wheezing or crackles. ABDOMEN: Soft, nontender, nondistended, normoactive bowel sounds. No palpable organomegaly. MUSCULOSKELETAL: No joint swelling or deformity. EXTREMITIES: No cyanosis, clubbing, or pedal edema. NEUROLOGICAL: Gross neurological examination did not reveal any focal deficits. SKIN: No rashes. - Labs CBC & Chem 7: 08/12/22 05:38 08/12/22 05:38 Labs: Abnormal Lab Results - Last 24 Hours (Table) 08/12/22 Range/Units 05:38 Sodium 126 L (135-145) mmol/L Chloride 94 L (96-109) mmol/L BUN 7.2 L (9.0-27.0) mg/dL BUN/Creatinine Ratio 9.50 L (12.00-20.00) Ratio Assessment and Plan Assessment: 1. Weakness/altered mental status/metabolic encephalopathy - Likely related to advancing dementia versus electrolyte imbalance - CT of the brain is completed and is negative for any acute process 2. Electrolyte imbalance/hyponatremia; patient has been placed on IV fluids in form of normal saline; we will monitor strict KIRSTEN's, daily weights, renal function and electrolytes -- We will initiate some workup if sodium level continues to drop 3. Leukocytosis; white blood count is slightly elevated at 10.8; patient remains afebrile without any signs of infection; lactic acid is normal at 1.6 and UA is negative - We will monitor CBC closely with plans to initiate sepsis workup if white blood count remains elevated 4. Hypertension; stable on home dose of enalapril 10 mg daily, metoprolol 25 mg daily and Norvasc 5 mg daily 5. Hyperlipidemia; Lipitor 40 mg 2 daily at bedtime 6. Hypothyroidism; levothyroxin 100 MCG daily 7. COPD/asthma; not in exacerbation; continue immunotherapy
[2022-08-12] MEDS: MONTELUKAST 10 MG TAB PO SCH (21:42)
[2022-08-12] MEDS: ATORVASTATIN 40 MG TAB PO SCH (21:42)
[2022-08-13] MEDS: SODIUM CHLORIDE 0.9% 1,000 ML IV SCH ×3 (05:39→20:52)
[2022-08-13] MEDS: LEVOTHYROXINE 100 MCG TAB PO SCH (05:51)
[2022-08-13] MEDS: IPRATROPIUM 0.5 MG/2.5 ML NEBU INHALATION SCH ×4 (07:35→20:07)
[2022-08-13] MEDS: FORMOTEROL FUMARATE 20 MCG/2 ML NEBU INHALATION SCH ×2 (07:35→20:07)
[2022-08-13] MEDS: amLODIPine 5 MG TAB PO SCH (08:59)
[2022-08-13] MEDS: lisinopriL 20 MG TAB PO SCH (08:59)
[2022-08-13] MEDS: SERTRALINE 50 MG TAB PO SCH (08:59)
[2022-08-13] MEDS: PANTOPRAZOLE 40 MG TABLET PO SCH (08:59)
[2022-08-13] MEDS: METOPROLOL SUCCINATE (ER) 25 MG TAB.ER.24H PO SCH (08:59)
[2022-08-13] MEDS: HEPARIN SODIUM,PORCINE/PF 5,000 UNIT/0.5 ML SYRINGE SQ SCH ×2 (08:59→20:56)
[2022-08-13 12:03] LABS: African American GFR (CKD) 84.7 (60.0-200.0); Anion Gap 10.3 mmol/L (10.00-18.00); BUN/Creat Ratio 5.84 Ratio (12.00-20.00); Blood Urea Nitrogen 4.5 mg/dL (9.0-27.0); Calcium 9.8 mg/dL (8.7-10.3); Carbon Dioxide 23.5 mmol/L (20.0-27.5); Non-African American GFR(CKD) 73.1 (60.0-200.0); Potassium 4.4 mmol/L (3.5-5.5)
--- NOTE | 2022-08-13 16:47 | P.PN ---
Subjective Progress Note Date: 08/13/22 Principal diagnosis: Weakness/altered mental status/metabolic encephalopathy Electrolyte imbalance/hyponatremia Leukocytosis 82-year-old female who presents emergency Department after he brought in by family members for hyponatremia. Patient has also had progressive memory issues as well as weakness. She is been hyponatremic for a while now since be getting worse which is why her PCP sent her in for further evaluation and admission. The remaining symptoms are all progressive been somewhat chronic. Patient denies any other acute complaints at this time. Patient's daughter is at bedside and helps with history. Presents for further evaluation at this time. Somewhat decreased appetite. Workup completed in ED EKG shows no signs of [address] of the brain was completed with no acute intracranial process Blood work reveals a sodium level of 122 and chloride of 88; slightly elevated white blood count of 14 - Patient received 1 L of normal saline in ED and is admitted for further treatment of hyponatremia 24-hour interval change 08/13/2022 Patient is seen and evaluated in room at bedside; discussed with nursing staff; no new complaints reported Vital signs are reviewed and remained stable with temperature of 99, pulse 56, respirations 16 and blood pressure 123/76 with O2 saturation 98% on room air Lab review shows sodium of 133, potassium 4.4, BUN/creatinine of 4.5/0.8 - We will continue patient on IV fluids in form of normal saline at a rate of 75 mL an hour; monitor blood pressure leg lites closely - PT/OT and case management is consulted Objective - Vital Signs Vital signs: Vital Signs Temp 98.4 F 08/13/22 07:56 Pulse 60 08/13/22 11:41 Resp 18 08/13/22 07:56 BP 135/78 08/13/22 07:56 Pulse Ox 100 08/13/22 07:56 FiO2 21 08/13/22 07:36 Intake & Output 08/12/22 08/13/22 08/13/22 18:59 06:59 18:59 Intake Total 360 590 Balance 360 590 Intake: Oral 360 590 Other: Voiding Method Toilet Toilet # Voids 3 3 1 # Bowel Movements 1 0 - Exam PHYSICAL EXAMINATION: GENERAL: The patient is alert and oriented x3, not in any acute distress. Well developed, well nourished. HEENT: Pupils are round and equally reacting to light. EOMI. No scleral icterus. No conjunctival pallor. Normocephalic, atraumatic. No pharyngeal erythema. No thyromegaly. CARDIOVASCULAR: S1 and S2 present. No murmurs, rubs, or gallops. PULMONARY: Chest is clear to auscultation, no wheezing or crackles. ABDOMEN: Soft, nontender, nondistended, normoactive bowel sounds. No palpable organomegaly. MUSCULOSKELETAL: No joint swelling or deformity. EXTREMITIES: No cyanosis, clubbing, or pedal edema. NEUROLOGICAL: Gross neurological examination did not reveal any focal deficits. SKIN: No rashes. - Labs CBC & Chem 7: 08/12/22 05:38 08/13/22 07:28 Labs: Abnormal Lab Results - Last 24 Hours (Table) 08/12/22 Range/Units 05:38 Lymphocytes # 5.49 H (0.90-5.00) X 10*3/uL Assessment and Plan Assessment: 1. Weakness/altered mental status/metabolic encephalopathy - Likely related to advancing dementia versus electrolyte imbalance - CT of the brain is completed and is negative for any acute process 2. Electrolyte imbalance/hyponatremia; patient has been placed on IV fluids in form of normal saline; we will monitor strict KIRSTEN's, daily weights, renal function and electrolytes -- We will initiate some workup if sodium level continues to drop 3. Leukocytosis; white blood count is slightly elevated at 10.8; patient remains afebrile without any signs of infection; lactic acid is normal at 1.6 and UA is negative - We will monitor CBC closely with plans to initiate sepsis workup if white blood count remains elevated 4. Hypertension; stable on home dose of enalapril 10 mg daily, metoprolol 25 mg daily and Norvasc 5 mg daily 5. Hyperlipidemia; Lipitor 40 mg 2 daily at bedtime 6. Hypothyroidism; levothyroxin 100 MCG daily 7. COPD/asthma; not in exacerbation; continue immunotherapy
[2022-08-13] MEDS: MONTELUKAST 10 MG TAB PO SCH (20:56)
[2022-08-13] MEDS: ATORVASTATIN 40 MG TAB PO SCH (20:56)
[2022-08-14] MEDS: LEVOTHYROXINE 100 MCG TAB PO SCH (06:51)
[2022-08-14] MEDS: IPRATROPIUM 0.5 MG/2.5 ML NEBU INHALATION SCH ×3 (07:32→15:05)
[2022-08-14] MEDS: FORMOTEROL FUMARATE 20 MCG/2 ML NEBU INHALATION SCH (07:32)
[2022-08-14] MEDS: lisinopriL 20 MG TAB PO SCH (08:37)
[2022-08-14] MEDS: amLODIPine 5 MG TAB PO SCH (08:37)
[2022-08-14] MEDS: PANTOPRAZOLE 40 MG TABLET PO SCH (08:37)
[2022-08-14] MEDS: METOPROLOL SUCCINATE (ER) 25 MG TAB.ER.24H PO SCH (08:37)
[2022-08-14] MEDS: HEPARIN SODIUM,PORCINE/PF 5,000 UNIT/0.5 ML SYRINGE SQ SCH (08:37)
[2022-08-14] MEDS: SERTRALINE 50 MG TAB PO SCH (08:37)
[2022-08-14 09:33] LABS: African American GFR (CKD) >90 (>60 ml/min/1.73 sqM); Anion Gap 8 mmol/L; Blood Urea Nitrogen 5 mg/dL (7-17); Calcium 9.8 mg/dL (8.4-10.2); Carbon Dioxide 24 mmol/L (22-30); Chloride 96 mmol/L (98-107); Glucose 128 mg/dL (74-99); Non-African American GFR(CKD) 85 (>60 ml/min/1.73 sqM); Potassium 4.7 mmol/L (3.5-5.1); Sodium 128 mmol/L (137-145)
[2022-08-14 11:01] LABS: Basophils % (A) 0 %; Eosinophils # (A) 0.1 k/uL (0-0.7); Eosinophils % (A) 1 %; HGB 11.5 gm/dL (11.4-16.0); Lymphocytes # (A) 4.2 k/uL (1.0-4.8); Lymphocytes % (A) 52 %; MCH 31.7 pg (25.0-35.0); MCHC 33.9 g/dL (31.0-37.0); MCV 93.6 fL (80.0-100.0); Monocytes # (A) 0.4 k/uL (0-1.0); Monocytes % (A) 5 %; Neutrophils # (A) 3.3 k/uL (1.3-7.7); Neutrophils % (A) 40 %; Platelet Count 272 k/uL (150-450); RBC 3.63 m/uL (3.80-5.40); RDW 13.9 % (11.5-15.5); WBC 8.1 k/uL (3.8-10.6)
[2022-08-14 11:21] LABS: African American GFR (CKD) >90 (>60 ml/min/1.73 sqM); Anion Gap 8 mmol/L; Blood Urea Nitrogen 5 mg/dL (7-17); Calcium 9.1 mg/dL (8.4-10.2); Carbon Dioxide 23 mmol/L (22-30); Chloride 97 mmol/L (98-107); Glucose 110 mg/dL (74-99); Magnesium 1.7 mg/dL (1.6-2.3); Non-African American GFR(CKD) 86 (>60 ml/min/1.73 sqM); Potassium 4.2 mmol/L (3.5-5.1); Sodium 128 mmol/L (137-145)
[2022-08-14] MEDS ORDERED: MAGNESIUM OXIDE 400 MG TAB PO SCH (14:15)
[2022-08-14 14:46] VITALS: BP 109/66; PULSE 66; RESP 16; TEMP 98.8
--- NOTE | 2022-08-17 00:04 | P.DS ---
Providers Date of admission: 08/10/22 16:49 Attending physician: Oscar Mccarthy MD Primary care physician: Carlos Moon Hospital Course: Final Diagnosis 1. Weakness/altered mental status/metabolic encephalopathy now alert x 3, this is likely secondary to the hyponatremia. 2. Electrolyte imbalance/hyponatremia likely due to diet 3. Leukocytosis 4. Hypertension 5. Hyperlipidemia 6. Hypothyroidism; 7. COPD/asthma; not in exacerbation; continue immunotherapy 9. Worsening memory issues possibly underlying dementia. Discharge Disposition Patient is stable for discharge. Enalapril and amlodipine have been discontinued on discharge. Recommend monitoring blood pressure at home and resume enalapril if blood pressure becomes elevated above 130s systolic. Recommend avoiding hypotension. Follow up closely on discharge with PCP and repeating labs in 2 to 3 days. Recommend discussing starting a medication for memory issues possible underlying dementia going on with your family doctor and can also follow up with neurology outpatient. -Recommended to increase dietary salt intake on discharge. If sodium still remains low patient to see nephrology outpatient and consider sodium chloride tablets. Hospital Course 82-year-old female who presents emergency Department after he brought in by family members for hyponatremia. Patient has also had progressive memory issues as well as weakness. She is been hyponatremic for a while now since be getting worse which is why her PCP sent her in for further evaluation and admission. The remaining symptoms are all progressive been somewhat chronic. Patient denies any other acute complaints at this time. Patient's daughter is at bedside and helps with history. Presents for further evaluation at this time. Somewhat decreased appetite. Patient had an EKG showing normal sinus rhythm, CT of the brain showing no acute intracranial process. Sodium of 122 on admission, WBC of 14. Patient was evaluated by Physical therapy who have cleared patient for discharge home. Patient is now currently alert x 3. Patient was hydrated with normal saline sodium had improved to 133 and 128. Patient was living by herself up until recently and has now been staying with her daughter and the plan is for her to return home with her daughter on discharge. Patient recommended to see neurology on discharge. CT showing no acute changes, there is mild to moderate diffuse age-related cerebral atrophy and moderate to severe probable chronic small vessel ischemic changed noted. Patient to see neurology on discharge for further work up possibly underlying dementia. Patient is denying chest pain currently no shortness of breath. Alert x 3. Lungs are clear, S1 S2 auscultated abdomen is soft and nontender. Please see medication reconciliation for a list of current medication. Thank you for allowing us to participate in the care of this patient. The impression and plan of care has been dictated by Indu Blackmon, Nurse Practitioner as directed. Dr. Madhuri MD I have performed a history and physical examination and medical decision making of this patient, discussed the same with the dictator, and agree with the dictators assessment and plan as written, documented as a scribe. Based on total visit time, I have performed more than 50% of this visit. Patient Condition at Discharge: Stable Plan - Discharge Summary New Discharge Prescriptions: Continue Sertraline [Zoloft] 50 mg PO DAILY Montelukast [Singulair] 10 mg PO HS Metoprolol Succinate (ER) [Toprol XL] 25 mg PO DAILY Umeclidinium Brm/Vilanterol Tr [Anoro Ellipta 62.5-25 Mcg INH] 1 puff INHALATION RT-DAILY Omeprazole [PriLOSEC] 20 mg PO DAILY Meloxicam [Mobic] 7.5 mg PO DAILY Levothyroxine Sodium [Synthroid] 100 mcg PO DAILY Atorvastatin [Lipitor] 40 mg PO HS Albuterol Sulfate [Albuterol Sulfate Hfa] 2 puff PO RT-Q6H PRN PRN Reason: Shortness Of Breath Discontinued amLODIPine [Norvasc] 5 mg PO DAILY Enalapril Maleate 10 mg PO DAILY Discharge Medication List Albuterol Sulfate [Albuterol Sulfate Hfa] 2 puff PO RT-Q6H PRN 08/10/22 [History] Atorvastatin [Lipitor] 40 mg PO HS 08/10/22 [History] Levothyroxine Sodium [Synthroid] 100 mcg PO DAILY 08/10/22 [History] Meloxicam [Mobic] 7.5 mg PO DAILY 08/10/22 [History] Metoprolol Succinate (ER) [Toprol XL] 25 mg PO DAILY 08/10/22 [History] Montelukast [Singulair] 10 mg PO HS 08/10/22 [History] Omeprazole [PriLOSEC] 20 mg PO DAILY 08/10/22 [History] Sertraline [Zoloft] 50 mg PO DAILY 08/10/22 [History] Umeclidinium Brm/Vilanterol Tr [Anoro Ellipta 62.5-25 Mcg INH] 1 puff INHALATION RT-DAILY 08/10/22 [History] Follow up Appointment(s)/Referral(s): Carlos Moon DO [Primary Care Provider] - 08/17/22 11:00 am Nate Fuentes DO [STAFF PHYSICIAN] - 1 Week (The office will call you with an appointment time and date.) Ambulatory/Diagnostic Orders: Basic Metabolic Panel [LAB.AMB] Time Frame: 3 Days, Location: None Selected Magnesium [LAB.AMB] Time Frame: 3 Days, Location: None Selected Patient Instructions/Handouts: Hyponatremia (DC), Basic Metabolic Panel (GEN), Weakness (DC), Hypomagnesemia (DC) Activity/Diet/Wound Care/Special Instructions: Recommend holding enalapril and amlodipine on discharge for now blood pressure is normal. Recommend monitoring blood pressure at home and resume enalapril if blood pressure becomes elevated above 130s systolic. Recommend avoiding hypotension. Follow up closely on discharge with PCP and repeating labs in 2 to 3 days. Recommend discussing starting a medication for memory issues possible underlying dementia going on with your family doctor and can also follow up with neurology outpatient. Discharge Disposition: HOME WITH HOME HEALTH SERVICES
== END 2022-08-14 17:49 | disposition home health service (06) | DRG 640 ==
LOC: EC 13:08 → 5NMEDONC 16:49
PROVIDERS: ADMIT Internal Medicine; ATTEND Internal Medicine
DX: E87.1 Hypo-osmolality and hyponatremia (principal); G93.41 Metabolic encephalopathy; E78.5 Hyperlipidemia, unspecified; E03.9 Hypothyroidism, unspecified; D72.829 Elevated white blood cell count, unspecified; I10 Essential (primary) hypertension; J44.9 Chronic obstructive pulmonary disease, unspecified; F41.9 Anxiety disorder, unspecified; Z79.899 Other long term (current) drug therapy; F03.90 Unspecified dementia, unspecified severity, without behavioral disturbance, psychotic disturbance, mood disturbance, and anxiety; Z87.891 Personal history of nicotine dependence; E87.8 Other disorders of electrolyte and fluid balance, not elsewhere classified; Z88.1 Allergy status to other antibiotic agents; Z88.0 Allergy status to penicillin; Z88.2 Allergy status to sulfonamides; Z79.890 Hormone replacement therapy
CPT/HCPCS: 36415; 70450; 71046; 80048; 80053; 81003; 82140; 83605; 83735; 84484; 85025; 85610; 85730; 93005; 94640; 94760

== ENCOUNTER 2022-09-18 10:18 | Observation (INO) | payer MEDICARE ==
[2022-09-18] MEDS ORDERED: ASPIRIN 81 MG PO STA (10:24)
[2022-09-18] MEDS ORDERED: NITROGLYCERIN OINT 1 INCH/GM PACKET TOPICAL STA (10:24)
--- NOTE | 2022-09-18 10:28 | ED ---
General Adult HPI - General Stated complaint: Chest Pain Time Seen by Provider: 09/18/22 10:18 Source: patient, RN notes reviewed, old records reviewed - History of Present Illness Initial comments: This is an 82-year-old female presents emergency room stating that she woke up about 3:30 in morning with severe chest pain radiated to her neck and arm it lasts about a half hour eventually went away. Patient states she woke up again this morning to get up and she still had chest pain neck pain and arm pain again it wasn't as severe and the handles volume was called when they got to the gave her nitro and after a few minutes the pain had subsided to 0. Patient currently is pain-free and has no symptoms. Patient denies any shortness of breath or difficulty breathing when she had the pain. Patient denies any diaphoretic episodes. Patient denies any nausea. Patient denies any abdominal pain. Patient denies any pain in her back. Patient denies headache patient denies numbness or weakness. Patient denies lightheadedness dizziness or near syncopal episode. Patient states that she does have a history of high blood pressure high cholesterol and smokes for about 35 years but quit 25 years ago. - Related Data Home Medications Medication Instructions Recorded Confirmed Albuterol Sulfate [Albuterol 2 puff PO RT-Q6H PRN 08/10/22 08/10/22 Sulfate Hfa] Atorvastatin [Lipitor] 40 mg PO HS 08/10/22 08/10/22 Levothyroxine Sodium [Synthroid] 100 mcg PO DAILY 08/10/22 08/10/22 Meloxicam [Mobic] 7.5 mg PO DAILY 08/10/22 08/10/22 Metoprolol Succinate (ER) [Toprol 25 mg PO DAILY 08/10/22 08/10/22 XL] Montelukast [Singulair] 10 mg PO HS 08/10/22 08/10/22 Omeprazole [PriLOSEC] 20 mg PO DAILY 08/10/22 08/10/22 Sertraline [Zoloft] 50 mg PO DAILY 08/10/22 08/10/22 Umeclidinium Brm/Vilanterol Tr 1 puff INHALATION RT-DAILY 08/10/22 08/10/22 [Anoro Ellipta 62.5-25 Mcg INH] Allergies Allergy/AdvReac Type Severity Reaction Status Date / Time ciprofloxacin [From Cipro] AdvReac Rash/Hives Verified 09/18/22 10:29 nitrofurantoin AdvReac Rash/Hives Verified 09/18/22 10:29 [From Macrobid] Penicillins AdvReac Rash/Hives Verified 09/18/22 10:29 Sulfa (Sulfonamide AdvReac Rash/Hives Verified 09/18/22 10:29 Antibiotics) Review of Systems ROS Statement: Those systems with pertinent positive or pertinent negative responses have been documented in the HPI. ROS Other: All systems not noted in ROS Statement are negative. Past Medical History Past Medical History: Hyperlipidemia, Hypertension, Thyroid Disorder Additional Past Medical History / Comment(s): arotic stenosis, hypothyroid History of Any Multi-Drug Resistant Organisms: None Reported Past Surgical History: Cholecystectomy Additional Past Surgical History / Comment(s): [facility] surgery at [facility] ([facility]) Past Anesthesia/Blood Transfusion Reactions: No Reported Reaction Past Psychological History: Anxiety Smoking Status: Former smoker Past Alcohol Use History: None Reported Past Drug Use History: None Reported General Exam - General Exam Comments Initial Comments: GENERAL: Patient is well-developed and well-nourished. Patient is nontoxic and well- hydrated and is in mild distress. ENT: Neck is soft and supple. No significant lymphadenopathy is noted. Oropharynx is clear. Moist mucous membranes. Neck has full range of motion without eliciting any pain. EYES: The sclera were anicteric and conjunctiva were pink and moist. Extraocular movements were intact and pupils were equal round and reactive to light. Eyelids were unremarkable. PULMONARY: Unlabored respirations. Good breath sounds bilaterally. No audible rales rh onchi or wheezing was noted. CARDIOVASCULAR: There is a regular rate and rhythm without any murmurs gallops or rubs. ABDOMEN: Soft and nontender with normal bowel sounds. SKIN: Skin is clear with no lesions or rashes and otherwise unremarkable. NEUROLOGIC: Patient is alert and oriented x3. Cranial nerves II through XII are grossly intact. Motor and sensory are also intact. Normal speech, volume and content. Symmetrical smile. MUSCULOSKELETAL: Normal extremities with adequate strength and full range of motion. LYMPHATICS: No significant lymphadenopathy is noted PSYCHIATRIC: Normal psychiatric evaluation. Course Vital Signs 09/18/22 10:20 Temperature 98.1 F Pulse Rate 68 Respiratory 18 Rate Blood Pressure 98/72 O2 Sat by Pulse 93 L Oximetry Medical Decision Making - Medical Decision Making EKG was interpreted by myself shows a sinus rhythm at 62 bpm WV interval 160 QRS is 80 QT interval 384 QTC is 392. Patient's EKG shows no ST segment elevation o r depression. Was pt. sent in by a medical professional or institution (, [facility], [facility], urgent care, hospital, or senior living...) When possible be specific @ -No Did you speak to anyone other than the patient for history (EMS, parent, family, police, friend...)? What history was obtained from this source @ -EMS gave a history of the medicines given in route Did you review nursing and triage notes (agree or disagree)? Why? @ -I reviewed and agree with nursing and triage notes Were old charts reviewed (outside hosp., previous admission, EMS record, old EKG, old radiological studies, urgent care reports/EKG's, senior living records)? Report findings @ -I reviewed prior lab work from prior radiological studies in this patient Differential Diagnosis (chest pain, altered mental status, abdominal pain women, abdominal pain men, vaginal bleeding, weakness, fever, dyspnea, syncope, headache, dizziness, GI bleed, back pain, seizure, CVA, palpatations, mental health, musculoskeletal)? @ -Differential Chest Pain: Stable Angina, Unstable Angina, STEMI, NSTEMI Aortic Dissection, Pneumothorax, Musculoskeletal, Esophageal Spasm GERD, Cholecystitis, Pancreatitis, Zoster, this is not meant to be an all-inclusive list. EKG interpreted by me (3pts min.). @ -As above X-rays interpreted by me (1pt min.). @ -Chest x-ray shows no acute abnormality CT interpreted by me (1pt min.). @ -None done U/S interpreted by me (1pt. min.). @ -None done What testing was considered but not performed or refused? (CT, X-rays, U/S, la bs)? Why? @ -None What meds were considered but not given or refused? Why? @ -None Did you discuss the management of the patient with other professionals (professionals i.e. [facility] Elkins, [facility], lab, RT, psych nurse, social security specialist, banking attorney, teacher, peace officer, catalytic case operator)? Give summary @ -Poke with Dr. Colt he agreed to admit the patient admitted the patient I wrote admitting orders Was smoking cessation discussed for >3mins.? @ -No Was critical care preformed (if so, how long)? @ -No Were there social determinants of health that impacted care today? How? (Homelessness, low income, unemployed, alcoholism, drug addiction, transportation, low edu. Level, literacy, decrease access to med. care, care home, re hab)? @ -No Was there de-escalation of care discussed even if they declined (Discuss DNR or withdrawal of care, Hospice)? DNR status @ -No What co-morbidities impacted this encounter? (DM, HTN, Smoking, COPD, CAD, Cancer, CVA, ARF, Chemo, Hep., AIDS, mental health diagnosis, sleep apnea, morbid obesity)? @ -None Was patient admitted / discharged? Hospital course, mention meds given and route, prescriptions, significant lab abnormalities, going to OR and other pertinent info. @ -Patient had been given nitroglycerin in route by the time she arrived at the emergency department she was pain-free. Patient lab work was done troponin was negative. I spoke with Dr. Gregory agreed to admit the patient wrote admitting orders I consulted cardiology Undiagnosed new problem with uncertain prognosis? @ -No Drug Therapy requiring intensive monitoring for toxicity (Heparin, Nitro, Insulin, Cardizem)? @ -No Were any procedures done? @ -No Diagnosis/symptom? @ -Chest pain Acute, or Chronic, or Acute on Chronic? @ -Acute Uncomplicated (without systemic symptoms) or Complicated (systemic symptoms)? @ -Complicated Side effects of treatment? @ -No Exacerbation, Progression, or Severe Exacerbation? @ -No Poses a threat to life or bodily function? How? (Chest pain, [place], [place], pneumonia, PE, COPD, DKA, ARF, appy, cholecystitis, CVA, Diverticulitis, Homicidal, Suicidal, threat to staff... and all critical care pts) @ -Yes this could lead to an MRI which can lead to end organ dysfunction - Lab Data Result diagrams: 09/18/22 10:35 09/18/22 10:35 Lab Results 09/18/22 09/18/22 09/18/22 Range/Units 10:35 10:35 10:35 WBC 8.9 (3.8-10.6) k/uL RBC 3.96 (3.80-5.40) m/uL Hgb 13.0 (11.4-16.0) gm/dL Hct 38.9 (34.0-46.0) % MCV 98.2 (80.0-100.0) fL MCH 32.8 (25.0-35.0) pg MCHC 33.4 (31.0-37.0) g/dL RDW 12.9 (11.5-15.5) % Plt Count 283 (150-450) k/uL MPV 7.2 Neutrophils % 59 % Lymphocytes % 30 % Monocytes % 7 % Eosinophils % 1 % Basophils % 0 % Neutrophils # 5.3 (1.3-7.7) k/uL Lymphocytes # 2.7 (1.0-4.8) k/uL Monocytes # 0.6 (0-1.0) k/uL Eosinophils # 0.1 (0-0.7) k/uL Basophils # 0.0 (0-0.2) k/uL PT 9.8 (9.0-12.0) sec INR 0.9 (<1.2) APTT 20.2 L (22.0-30.0) sec Sodium 134 L (137-145) mmol/L Potassium 4.2 (3.5-5.1) mmol/L Chloride 100 (98-107) mmol/L Carbon Dioxide 26 (22-30) mmol/L Anion Gap 8 mmol/L BUN 14 (7-17) mg/dL Creatinine 0.72 (0.52-1.04) mg/dL Est GFR (CKD-EPI)AfAm >90 (>60 ml/min/1.73 sqM) Est GFR (CKD-EPI)NonAf 80 (>60 ml/min/1.73 sqM) Glucose 112 H (74-99) mg/dL Calcium 9.6 (8.4-10.2) mg/dL Magnesium 1.9 (1.6-2.3) mg/dL Total Bilirubin 0.5 (0.2-1.3) mg/dL AST 25 (14-36) U/L ALT 13 (4-34) U/L Alkaline Phosphatase 115 (38-126) U/L Troponin I (0.000-0.034) ng/mL Total Protein 6.5 (6.3-8.2) g/dL Albumin 3.9 (3.5-5.0) g/dL 09/18/22 Range/Units 10:35 WBC (3.8-10.6) k/uL RBC (3.80-5.40) m/uL Hgb (11.4-16.0) gm/dL Hct (34.0-46.0) % MCV (80.0-100.0) fL MCH (25.0-35.0) pg MCHC (31.0-37.0) g/dL RDW (11.5-15.5) % Plt Count (150-450) k/uL MPV Neutrophils % % Lymphocytes % % Monocytes % % Eosinophils % % Basophils % % Neutrophils # (1.3-7.7) k/uL Lymphocytes # (1.0-4.8) k/uL Monocytes # (0-1.0) k/uL Eosinophils # (0-0.7) k/uL Basophils # (0-0.2) k/uL PT (9.0-12.0) sec INR (<1.2) APTT (22.0-30.0) sec Sodium (137-145) mmol/L Potassium (3.5-5.1) mmol/L Chloride (98-107) mmol/L Carbon Dioxide (22-30) mmol/L Anion Gap mmol/L BUN (7-17) mg/dL Creatinine (0.52-1.04) mg/dL Est GFR (CKD-EPI)AfAm (>60 ml/min/1.73 sqM) Est GFR (CKD-EPI)NonAf (>60 ml/min/1.73 sqM) Glucose (74-99) mg/dL Calcium (8.4-10.2) mg/dL Magnesium (1.6-2.3) mg/dL Total Bilirubin (0.2-1.3) mg/dL AST (14-36) U/L ALT (4-34) U/L Alkaline Phosphatase (38-126) U/L Troponin I <0.012 (0.000-0.034) ng/mL Total Protein (6.3-8.2) g/dL Albumin (3.5-5.0) g/dL Disposition Clinical Impression: Chest pain Disposition: ADMITTED IP TO THIS HOSP Referrals: Carlos Moon DO [Primary Care Provider] - 1-2 days Time of Disposition: 12:06
[2022-09-18 10:50] LABS: Basophils % (A) 0 %; Eosinophils # (A) 0.1 k/uL (0-0.7); Eosinophils % (A) 1 %; HCT 38.9 % (34.0-46.0); Lymphocytes # (A) 2.7 k/uL (1.0-4.8); Lymphocytes % (A) 30 %; MCH 32.8 pg (25.0-35.0); MCHC 33.4 g/dL (31.0-37.0); MCV 98.2 fL (80.0-100.0); Mean Platelet Volume 7.2; Monocytes # (A) 0.6 k/uL (0-1.0); Monocytes % (A) 7 %; Neutrophils # (A) 5.3 k/uL (1.3-7.7); Neutrophils % (A) 59 %; Platelet Count 283 k/uL (150-450); RBC 3.96 m/uL (3.80-5.40); RDW 12.9 % (11.5-15.5); WBC 8.9 k/uL (3.8-10.6)
[2022-09-18 11:03] LABS: INR 0.9 (<1.2); Prothrombin Time 9.8 sec (9.0-12.0)
[2022-09-18 11:04] LABS: ALT 13 U/L (4-34); AST 25 U/L (14-36); African American GFR (CKD) >90 (>60 ml/min/1.73 sqM); Albumin 3.9 g/dL (3.5-5.0); Alkaline Phosphatase 115 U/L (38-126); Anion Gap 8 mmol/L; Blood Urea Nitrogen 14 mg/dL (7-17); Calcium 9.6 mg/dL (8.4-10.2); Carbon Dioxide 26 mmol/L (22-30); Chloride 100 mmol/L (98-107); Glucose 112 mg/dL (74-99); Magnesium 1.9 mg/dL (1.6-2.3); Non-African American GFR(CKD) 80 (>60 ml/min/1.73 sqM); Potassium 4.2 mmol/L (3.5-5.1); Sodium 134 mmol/L (137-145); Total Bilirubin 0.5 mg/dL (0.2-1.3); Total Protein 6.5 g/dL (6.3-8.2)
[2022-09-18 11:25] LABS: Partial Thromboplastin Time 20.2 sec (22.0-30.0)
--- NOTE | 2022-09-18 11:49 | XR ---
EXAMINATION TYPE: XR chest 2V DATE OF EXAM: 09/18/2022 COMPARISON: 08/10/2022 INDICATION: Chest pain TECHNIQUE: Frontal and lateral views of the chest are obtained. FINDINGS: The heart size is normal. The pulmonary vasculature is normal. The lungs are clear. There is hyperinflation and flattening the diaphragms compatible with COPD. The re is elevation of the left diaphragm appears to be chronic. IMPRESSION: 1. No acute pulmonary process. 2. COPD
[2022-09-18] MEDS ORDERED: NITROGLYCERIN SL TABS 0.4 MG TAB SUBLINGUAL PRN (12:06)
[2022-09-18] MEDS ORDERED: ALBUTEROL NEBULIZED 2.5 MG/3 ML INHALATION PRN (13:28)
[2022-09-18] MEDS ORDERED: LACTULOSE 20 GM/30 ML CUP PO PRN (13:29)
[2022-09-18] MEDS ORDERED: MELATONIN 3 MG TABLET PO PRN (13:29)
[2022-09-18] MEDS ORDERED: NALOXONE 0.4 MG/ML 1 ML VIAL IV PRN (13:29)
[2022-09-18] MEDS ORDERED: ALPRAZolam 0.25 MG TAB PO PRN (13:29)
[2022-09-18] MEDS ORDERED: CALCIUM CARBONATE 500 MG CHEWABLE PO PRN (13:29)
[2022-09-18] MEDS ORDERED: ACETAMINOPHEN TAB 325 MG TAB PO PRN (13:29)
[2022-09-18] MEDS ORDERED: ONDANSETRON 4 MG/2 ML VIAL IVP PRN (13:29)
--- NOTE | 2022-09-18 13:38 | P.HPIM ---
History of Present Illness H&P Date: 09/18/22 Chief Complaint: Chest pain This is a pleasant 82-year-old patient who follows with Dr. Moon. Chronic stable medical conditions include hypertension, hyperlipidemia, hypothyroid, otic stenosis. Patient is by herself. Patient is woken up about 3:30 AM this morning with burning sensation across the chest going up to the neck. Lasted for about half an hour. Patient went back to sleep. After sometime woke up again with chest pain. No association shortness of breath dizziness lightheadedness perspiration. Did feel tired. Decided to come in. Initial troponin was negative. Accompanied by her daughter the bedside. In the ER. Review of systems: GEN.: Tired EYES: None HEENT: None NECK: None RESPIRATORY: None CARDIOVASCULAR: [As above GASTROINTESTINAL: Heartburn GENITOURINARY: None MUSCULOSKELETAL: Joint pains LYMPHATICS: None HEMATOLOGICAL: None PSYCHIATRY: None NEUROLOGICAL: None Past medical history to include: Hypertension, hyperlipidemia, hypothyroid, aortic stenosis, osteoarthritis, anxiety Social history: Patient does smoke in the past. Lives alone. No alcohol. Physical examination: VITAL SIGNS: 98.1, 62, 16, 129/80, 95% room air GENERAL: BMI 24.7, declining a bit of a comfortable. EYES: Pupils equal. Conjunctiva normal. HEENT: External appearance of nose and ears normal, oral cavity grossly normal. NECK: JVD not raised; masses not palpable. HEART: First and second heart sounds are normal; no edema. LUNGS: Respiratory rate normal; clear to auscultation. ABDOMEN: Soft, nontender, liver spleen not palpable, no masses palpable. PSYCH: Alert and oriented x3; mood and affect normal. MUSCULOSKELETAL:No Clubbing/cyanosis;muscles-grossly intact. OA NEUROLOGICAL: Cranial nerves grossly intact; no facial asymmetry, power and sensation grossly intact. LYMPHATICS: No lymph nodes palpable in the axilla and neck INVESTIGATIONS, reviewed in the clinical context: White count 8.9 hemoglobin 13 platelets 283 sodium 134 potassium 4.2 creatinine 0.7 to Troponin I less than 0.012 EKG tracing personally reviewed by me-no sinus rhythm. Rate 63 Chest x-ray film personally reviewed by me-hyperinflation. Some cardiomegaly. Assessment and plan: -Unstable angina in a patient with known cardiac risk factors of advanced age, hypertension, hyperlipidemia. Initial troponin negative. Serial cardiac enzymes. Consult cardiology -COPD in a previous smoker Continue inhalers including albuterol when necessary -Hyperlipidemia Lipitor 40 mg daily at bedtime -Hypothyroid Synthroid 100 g a day -Primary osteoarthritis Mobic 7.5 mg a day -Essential hypertension Toprol XL 25 mg a day -GERD Prilosec 20 mg a day -Depression, anxiety Zoloft 50 mg a day Care was discussed with the patient and daughter the bedside. Follow with cardiology Past Medical History Past Medical History: Hyperlipidemia, Hypertension, Thyroid Disorder Additional Past Medical History / Comment(s): arotic stenosis, hypothyroid History of Any Multi-Drug Resistant Organisms: None Reported Past Surgical History: Cholecystectomy Additional Past Surgical History / Comment(s): Esophageal surgery at [facility] ( 2014) Past Anesthesia/Blood Transfusion Reactions: No Reported Reaction Past Psychological History: Anxiety Smoking Status: Former smoker Past Alcohol Use History: None Reported Past Drug Use History: None Reported Medications and Allergies Home Medications Medication Instructions Recorded Confirmed Type Albuterol Sulfate [Albuterol 2 puff PO RT-Q6H PRN 08/10/22 09/18/22 History Sulfate Hfa] Atorvastatin [Lipitor] 40 mg PO HS 08/10/22 09/18/22 History Levothyroxine Sodium [Synthroid] 100 mcg PO DAILY 08/10/22 09/18/22 History Meloxicam [Mobic] 7.5 mg PO DAILY 08/10/22 09/18/22 History Metoprolol Succinate (ER) [Toprol 25 mg PO DAILY 08/10/22 09/18/22 History XL] Montelukast [Singulair] 10 mg PO HS 08/10/22 09/18/22 History Omeprazole [PriLOSEC] 20 mg PO DAILY 08/10/22 09/18/22 History Sertraline [Zoloft] 50 mg PO DAILY 08/10/22 09/18/22 History Umeclidinium Brm/Vilanterol Tr 1 puff INHALATION RT-DAILY 08/10/22 09/18/22 History [Anoro Ellipta 62.5-25 Mcg INH] Allergies Allergy/AdvReac Type Severity Reaction Status Date / Time ciprofloxacin [From Cipro] AdvReac Rash/Hives Verified 09/18/22 12:26 nitrofurantoin AdvReac Rash/Hives Verified 09/18/22 12:26 [From Macrobid] Penicillins AdvReac Rash/Hives Verified 09/18/22 12:26 Sulfa (Sulfonamide AdvReac Rash/Hives Verified 09/18/22 12:26 Antibiotics) Physical Exam Vitals: Vital Signs Temp Pulse Resp BP Pulse Ox 09/18/22 12:30 62 16 129/80 95 09/18/22 12:00 65 18 113/73 95 09/18/22 11:00 64 16 110/73 95 09/18/22 10:20 98.1 F 68 18 98/72 93 L Intake and Output 09/17/22 09/18/22 09/18/22 22:59 06:59 14:59 Other: Weight 49.895 kg Results CBC & Chem 7: 09/18/22 10:35 09/18/22 10:35 Labs: Abnormal Lab Results - Last 24 Hours (Table) 09/18/22 09/18/22 Range/Units 10:35 10:35 APTT 20.2 L (22.0-30.0) sec Sodium 134 L (137-145) mmol/L Glucose 112 H (74-99) mg/dL
[2022-09-18] MEDS: ENOXAPARIN 40 MG/0.4 ML SYRINGE SQ SCH (14:50)
--- NOTE | 2022-09-18 15:27 | CONS ---
CONSULTATION HISTORY OF PRESENT ILLNESS: Mary is an 82-year-old lady with history of moderate aortic stenosis, hypertension, hypothyroidism, and dyslipidemia, who presented to hospital complaining of chest discomfort. She also has history of anxiety. She stated that the chest discomfort has started around 02:30 in the morning. Describes it as a tightness in the precordial area with some radiation to left arm. Because of these continued symptoms, came to the ER, from where I was consulted. EKG shows sinus rhythm without acute ST-T wave changes. Troponin is negative. Given the unexplained chest discomfort, I talked to her at length about her treatment options including cardiac catheterization with a view to performing angioplasty; Lexiscan, and if she has ischemia, then consider cardiac catheterization; or treat conservatively, and if she becomes chest pain-free, her cardiac enzymes are not increased, and there are no wall motion abnormalities, discharge her home and arrange followup with Dr. Galvan, the assurance analyst whom she follows regularly at [facility]. PAST MEDICAL HISTORY: Significant for hypertension, dyslipidemia, and aortic stenosis. MEDICATIONS AT HOME: Included: 1. Zoloft. 2. Prilosec. 3. Toprol. 4. Mobic. 5. Synthroid. 6. Lipitor. ALLERGIES: 1. Penicillin. 2. Macrobid. 3. Cipro. 4. Sulfa. FAMILY HISTORY: Negative for premature coronary artery disease. SOCIAL HISTORY: Negative for smoking, EtOH abuse, or drug abuse. REVIEW OF SYSTEMS: 14 out of 14 review of systems has been performed. Pertinents are as documented. PHYSICAL EXAMINATION: GENERAL: Comfortable at rest. VITAL SIGNS: Stable. NECK: There is no jugular venous distention. Carotid upstroke is normal. There is no bruit. CHEST: Reveals good air entry bilaterally. HEART: Reveals first and second heart sounds. A grade 4/6 ejection systolic murmur in the aortic area. ABDOMEN: Soft. EXTREMITIES: Did not reveal any edema. Peripheral pulses are felt. LABORATORY DATA: Show a hemoglobin of 13, platelet count is 283. Potassium is 4.2, creatinine is 0.7. Troponin is negative. ASSESSMENT: 1. Precordial chest pain. 2. Aortic stenosis. 3. Hypertension. 4. Dyslipidemia. PLAN: We will obtain serial troponins, obtain a 2D echo, and decide on further course of action based on how her symptoms evolve. MMODL / IJN: [id number] /
[2022-09-18] MEDS: NITROGLYCERIN OINT 1 INCH/GM PACKET TOPICAL SCH ×2 (19:16→23:13)
[2022-09-18] MEDS: IPRATROPIUM 0.5 MG/2.5 ML NEBU INHALATION SCH (19:44)
[2022-09-18] MEDS ORDERED: MONTELUKAST 10 MG TAB PO SCH (21:00)
[2022-09-18] MEDS ORDERED: ATORVASTATIN 40 MG TAB PO SCH (21:00)
[2022-09-19] MEDS: NITROGLYCERIN OINT 1 INCH/GM PACKET TOPICAL SCH (05:00)
[2022-09-19] MEDS ORDERED: LEVOTHYROXINE 100 MCG TAB PO SCH (06:30)
[2022-09-19] MEDS ORDERED: FORMOTEROL FUMARATE 20 MCG/2 ML NEBU INHALATION SCH (08:00)
[2022-09-19 08:09] VITALS: RESP 13
[2022-09-19] MEDS: ENOXAPARIN 40 MG/0.4 ML SYRINGE SQ SCH (08:28)
[2022-09-19 08:44] LABS: Chol/HDL Ratio 3.84 Ratio; LDL Cholesterol,Calculated 150.9 mg/dL (0.0-131.0)
[2022-09-19] MEDS: IPRATROPIUM 0.5 MG/2.5 ML NEBU INHALATION SCH ×3 (08:57→15:27)
[2022-09-19] MEDS ORDERED: ASPIRIN 81 MG PO SCH (09:00)
[2022-09-19] MEDS ORDERED: METOPROLOL SUCCINATE (ER) 25 MG TAB.ER.24H PO SCH (09:00)
[2022-09-19] MEDS ORDERED: ASPIRIN 325 MG TAB PO SCH (09:00)
[2022-09-19] MEDS ORDERED: PANTOPRAZOLE 40 MG TABLET PO SCH (09:00)
[2022-09-19] MEDS ORDERED: MELOXICAM 7.5 MG TAB PO SCH (09:00)
[2022-09-19] MEDS ORDERED: SERTRALINE 50 MG TAB PO SCH (09:00)
--- NOTE | 2022-09-19 09:38 | P.PN ---
Subjective HISTORY OF PRESENT ILLNESS: This is an 82-year-old female who follows with Dr. Galvan out of [facility]. Patient presented to the hospital with a chief complaint of chest pain. EKG was nonischemic and patient's troponins have been negative. This morning she denies any further episodes of chest pain or pressure. She denies shortness of breath. Vital signs are stable. PHYSICAL EXAM: VITAL SIGNS: Reviewed. GENERAL: Well-developed in no acute distress. NECK: Supple. No JVD or thyromegaly LUNGS: Respirations even and unlabored. Lungs essentially clear to auscultation bilaterally. HEART: Regular rate and rhythm. S1 and S2 heard. Systolic murmur noted EXTREMITIES: Normal range of motion. No clubbing or cyanosis. Peripheral pulses intact. No lower extremity edema ASSESSMENT: Chest pain, troponins negative 3, acute coronary syndrome ruled out Hypertension Hyperlipidemia Aortic stenosis PLAN: An acute coronary event has been ruled out Add aspirin 81 mg daily 2-D echo is currently pending Patient would like to have her care done by her primary plan rep including possible CRESENCIO, stress test, or cardiac cath Patient may be discharged home this afternoon and follow up with her primary plan rep Nurse practitioner note has been reviewed by physician. Signing provider agrees with the documented findings, assessment, and plan of care. Objective - Vital Signs Vital signs: Vital Signs Temp 98.1 F 09/19/22 07:25 Pulse 61 09/19/22 09:09 Resp 13 09/19/22 07:25 BP 126/71 09/19/22 07:25 Pulse Ox 95 09/19/22 07:25 FiO2 Intake & Output 09/18/22 09/19/22 09/19/22 18:59 06:59 18:59 Intake Total 118 Balance 118 Weight 49.895 kg Intake: Oral 118 Other: Voiding Method Toilet # Voids 1 - Labs CBC & Chem 7: 09/18/22 10:35 09/18/22 10:35 Labs: Abnormal Lab Results - Last 24 Hours (Table) 09/18/22 09/18/22 09/19/22 Range/Units 10:35 10:35 05:46 APTT 20.2 L (22.0-30.0) sec Sodium 134 L (137-145) mmol/L Glucose 112 H (74-99) mg/dL Triglycerides 155.00 H (0.00-149.00) mg/dL Cholesterol 246.00 H (0.00-200.00) mg/dL LDL Cholesterol, Calc 150.9 H (0.0-131.0) mg/dL HDL Cholesterol 64.10 H (40.00-60.00) mg/dL
[2022-09-19 14:56] VITALS: TEMP 98.5
[2022-09-19 14:57] VITALS: BP 101/64
[2022-09-19 15:38] VITALS: PULSE 62
--- NOTE | 2022-09-19 22:16 | P.DS ---
Providers Date of admission: 09/18/22 12:07 Expected date of discharge: 09/19/22 Attending physician: Nakul Gregory Consults: 09/18/22 12:06 Consult Physician Urgent Consulting Provider: [facility] Consult Reason/Comments: Chest pain Do you want consulting provider notified?: Yes Primary care physician: Carlos Moon [facility] Course: Chief Complaint: Chest pain This is a pleasant 82-year-old patient who follows with Dr. Moon. Chronic stable medical conditions include hypertension, hyperlipidemia, hypothyroid, otic stenosis. Patient is by herself. Patient is woken up about 3:30 AM this morning with burning sensation across the chest going up to the neck. Lasted for about half an hour. Patient went back to sleep. After sometime woke up again with chest pain. No association shortness of breath dizziness lightheadedness perspiration. Did feel tired. Decided to come in. Initial troponin was negative. Accompanied by her daughter the bedside. In the ER. September 19: No further chest pain. 2-D echo unremarkable. Stress echocardiogram negative. Patient be discharged home. Will follow outpatient with cardiology. Aspirin. Lopressor. Hyperlipidemia. On Lipitor Past medical history to include: Hypertension, hyperlipidemia, hypothyroid, aortic stenosis, osteoarthritis, anxiety Social history: Patient does smoke in the past. Lives alone. No alcohol. Physical examination: VITAL SIGNS: 98.5, 74, 16, 03/18/1962, 94% room air GENERAL: BMI 24.7, comfortable EYES: Pupils equal. Conjunctiva normal. HEENT: External appearance of nose and ears normal, oral cavity grossly normal. NECK: JVD not raised; masses not palpable. HEART: First and second heart sounds are normal; no edema. LUNGS: Respiratory rate normal; clear to auscultation. ABDOMEN: Soft, nontender, liver spleen not palpable, no masses palpable. PSYCH: Alert and oriented x3; mood and affect normal. MUSCULOSKELETAL:No Clubbing/cyanosis;muscles-grossly intact. OA INVESTIGATIONS, reviewed in the clinical context: LDL 150 White count 8.9 hemoglobin 13 platelets 283 sodium 134 potassium 4.2 creatinine 0.7 to Troponin I less than 0.012 EKG tracing personally reviewed by me-no sinus rhythm. Rate 63 Chest x-ray film personally reviewed by me-hyperinflation. Some cardiomegaly. Assessment and plan: -Posterior chest wall pain. Stress echocardiogram negative. Some EKG changes. Negative concerns.. Possible musculoskeletal Lopressor. Aspirin. -COPD in a previous smoker Continue inhalers including albuterol when necessary -Hyperlipidemia Lipitor 40 mg daily at bedtime -Hypothyroid Synthroid 100 g a day -Primary osteoarthritis Mobic 7.5 mg a day -Essential hypertension Lopressor 25 mg twice a day -GERD Prilosec 20 mg a day -Depression, anxiety Zoloft 50 mg a day Disposition: Home Plan - Discharge Summary Discharge Rx Participant: Yes New Discharge Prescriptions: New Aspirin 81 mg PO DAILY tab Nitroglycerin Sl Tabs [Nitrostat] 0.4 mg SUBLINGUAL Q5M PRN #30 tab PRN Reason: Chest Pain Continue Sertraline [Zoloft] 50 mg PO DAILY Montelukast [Singulair] 10 mg PO HS Metoprolol Succinate (ER) [Toprol XL] 25 mg PO DAILY Umeclidinium Brm/Vilanterol Tr [Anoro Ellipta 62.5-25 Mcg INH] 1 puff IN HALATION RT-DAILY Omeprazole [PriLOSEC] 20 mg PO DAILY Meloxicam [Mobic] 7.5 mg PO DAILY Levothyroxine Sodium [Synthroid] 100 mcg PO DAILY Atorvastatin [Lipitor] 40 mg PO HS Albuterol Sulfate [Albuterol Sulfate Hfa] 2 puff PO RT-Q6H PRN PRN Reason: Shortness Of Breath Discharge Medication List Albuterol Sulfate [Albuterol Sulfate Hfa] 2 puff PO RT-Q6H PRN 08/10/22 [History] Atorvastatin [Lipitor] 40 mg PO HS 08/10/22 [History] Levothyroxine Sodium [Synthroid] 100 mcg PO DAILY 08/10/22 [History] Meloxicam [Mobic] 7.5 mg PO DAILY 08/10/22 [History] Metoprolol Succinate (ER) [Toprol XL] 25 mg PO DAILY 08/10/22 [History] Montelukast [Singulair] 10 mg PO HS 08/10/22 [History] Omeprazole [PriLOSEC] 20 mg PO DAILY 08/10/22 [History] Sertraline [Zoloft] 50 mg PO DAILY 08/10/22 [History] Umeclidinium Brm/Vilanterol Tr [Anoro Ellipta 62.5-25 Mcg INH] 1 puff INHALATION RT-DAILY 08/10/22 [History] Aspirin 81 mg PO DAILY tab 09/19/22 [Rx] Nitroglycerin Sl Tabs [Nitrostat] 0.4 mg SUBLINGUAL Q5M PRN #30 tab 09/19/22 [Rx] Follow up Appointment(s)/Referral(s): dr lexy [Other] - 1 Week Carlos Moon DO [Primary Care Provider] - 1-2 days Patient Instructions/Handouts: Chest Pain (GEN) Discharge Disposition: HOME SELF-CARE
--- NOTE | 2022-09-19 22:21 | P.DS ---
Providers Date of admission: 09/18/22 12:07 Expected date of discharge: 09/19/22 Attending physician: Nakul Gregory Consults: 09/18/22 12:06 Consult Physician Urgent Consulting Provider: [facility] Consult Reason/Comments: Chest pain Do you want consulting provider notified?: Yes Primary care physician: Carlos Moon [facility] Course: Chief Complaint: Chest pain This is a pleasant 82-year-old patient who follows with Dr. Moon. Chronic stable medical conditions include hypertension, hyperlipidemia, hypothyroid, otic stenosis. Patient is by herself. Patient is woken up about 3:30 AM this morning with burning sensation across the chest going up to the neck. Lasted for about half an hour. Patient went back to sleep. After sometime woke up again with chest pain. No association shortness of breath dizziness lightheadedness perspiration. Did feel tired. Decided to come in. Initial troponin was negative. Accompanied by her daughter the bedside. In the ER. September 19: No further chest pain. Seen by cardiology earlier today. Patient was to follow-up with her telecommunications facility examiner. Hence patient being discharged. 2-D echo was done results of which are pending. Past medical history to include: Hypertension, hyperlipidemia, hypothyroid, aortic stenosis, osteoarthritis, anxiety Social history: Patient does smoke in the past. Lives alone. No alcohol. Physical examination: VITAL SIGNS: 98.5, 74, 16, 101/64, 94% room air GENERAL: BMI 24.7, reclining, comfortable EYES: Pupils equal. Conjunctiva normal. HEENT: External appearance of nose and ears normal, oral cavity grossly normal. NECK: JVD not raised; masses not palpable. HEART: First and second heart sounds are normal; no edema. LUNGS: Respiratory rate normal; clear to auscultation. ABDOMEN: Soft, nontender, liver spleen not palpable, no masses palpable. PSYCH: Alert and oriented x3; mood and affect normal. MUSCULOSKELETAL:No Clubbing/cyanosis;muscles-grossly intact. OA INVESTIGATIONS, reviewed in the clinical context: LDL 150 2-D echocardiogram results pending White count 8.9 hemoglobin 13 platelets 283 sodium 134 potassium 4.2 creatinine 0.7 to Troponin I less than 0.012 EKG tracing personally reviewed by me-no sinus rhythm. Rate 63 Chest x-ray film personally reviewed by me-hyperinflation. Some cardiomegaly. Assessment and plan: -Unstable angina in a patient with known cardiac risk factors of advanced age, hypertension, hyperlipidemia. Initial troponin negative. Patient was to follow with her own telecommunications facility examiner. 2-D echo results pending. -COPD in a previous smoker Continue inhalers including albuterol when necessary -Hyperlipidemia Lipitor 40 mg daily at bedtime -Hypothyroid Synthroid 100 g a day -Primary osteoarthritis Mobic 7.5 mg a day -Essential hypertension Toprol XL 25 mg a day -GERD Prilosec 20 mg a day -Depression, anxiety Zoloft 50 mg a day Disposition: Home Plan - Discharge Summary Discharge Rx Participant: Yes New Discharge Prescriptions: New Aspirin 81 mg PO DAILY tab Nitroglycerin Sl Tabs [Nitrostat] 0.4 mg SUBLINGUAL Q5M PRN #30 tab PRN Reason: Chest Pain Continue Sertraline [Zoloft] 50 mg PO DAILY Montelukast [Singulair] 10 mg PO HS Metoprolol Succinate (ER) [Toprol XL] 25 mg PO DAILY Umeclidinium Brm/Vilanterol Tr [Anoro Ellipta 62.5-25 Mcg INH] 1 puff INHALATION RT-DAILY Omeprazole [PriLOSEC] 20 mg PO DAILY Meloxicam [Mobic] 7.5 mg PO DAILY Levothyroxine Sodium [Synthroid] 100 mcg PO DAILY Atorvastatin [Lipitor] 40 mg PO HS Albuterol Sulfate [Albuterol Sulfate Hfa] 2 puff PO RT-Q6H PRN PRN Reason: Shortness Of Breath Discharge Medication List Albuterol Sulfate [Albuterol Sulfate Hfa] 2 puff PO RT-Q6H PRN 08/10/22 [History] Atorvastatin [Lipitor] 40 mg PO HS 08/10/22 [History] Levothyroxine Sodium [Synthroid] 100 mcg PO DAILY 08/10/22 [History] Meloxicam [Mobic] 7.5 mg PO DAILY 08/10/22 [History] Metoprolol Succinate (ER) [Toprol XL] 25 mg PO DAILY 08/10/22 [History] Montelukast [Singulair] 10 mg PO HS 08/10/22 [History] Omeprazole [PriLOSEC] 20 mg PO DAILY 08/10/22 [History] Sertraline [Zoloft] 50 mg PO DAILY 08/10/22 [History] Umeclidinium Brm/Vilanterol Tr [Anoro Ellipta 62.5-25 Mcg INH] 1 puff INHALATION RT-DAILY 08/10/22 [History] Aspirin 81 mg PO DAILY tab 09/19/22 [Rx] Nitroglycerin Sl Tabs [Nitrostat] 0.4 mg SUBLINGUAL Q5M PRN #30 tab 09/19/22 [Rx] Follow up Appointment(s)/Referral(s): dr lexy [Other] - 1 Week Carlos Moon DO [Primary Care Provider] - 1-2 days Patient Instructions/Handouts: Chest Pain (GEN) Discharge Disposition: HOME SELF-CARE
--- NOTE | 2022-09-20 13:13 | CA ---
Transthoracic Echo Report Name: Mary Arora Age: 82 Gender: F : 1940 Exam Date: 09/19/2022 12:23 Exam Location: [facility] Ht (in): 56 Wt (lb): 110 Ordering Physician: Krissy Zepeda Attending/Referring Phys: [id number], Katelyn Patient Care Provider Luis Fernando Ulloa Procedure CPT: Indications: LV function, CP, Cardiac Hx: Technical Quality: Fair Contrast 1: Total Dose (mL): Contrast 2: Total Dose (mL): MEASUREMENTS (Male / Female) Normal Values 2D ECHO LV Diastolic Diameter PLAX 3.7 cm 4.2 - 5.9 / 3.9 - 5.3 cm LV Systolic Diameter PLAX 2.9 cm IVS Diastolic Thickness 1.2 cm 0.6 - 1.0 / 0.6 - 0.9 cm LVPW Diastolic Thickness 1.1 cm 0.6 - 1.0 / 0.6 - 0.9 cm LV Relative Wall Thickness 0.6 RV Internal Dim ED PLAX 3.2 cm LVOT Diameter 1.8 cm LV Diastolic Volume MOD BP 34.2 cm??? 67 - 155 / 56 - 104 cm??? LV Systolic Volume MOD BP 9.4 cm??? 22 - 58 / 19 - 49 cm??? LV Ejection Fraction MOD BP 72.4 % >= 55 % LV Diastolic Volume MOD 4C 33.5 cm??? LV Systolic Volume MOD 4C 8.4 cm??? LV Ejection Fraction MOD 4C 74.9 % LV Diastolic Length 4C 5.3 cm LV Systolic Length 4C 5.2 cm LV Diastolic Volume MOD 2C 32.1 cm??? LV Systolic Volume MOD 2C 10.1 cm??? LV Ejection Fraction MOD 2C 68.5 % LV Diastolic Length 2C 5.8 cm LV Systolic Length 2C 4.9 cm LA Volume 50.2 cm??? 18 - 58 / 22 - 52 cm??? DOPPLER AV Peak Velocity 214.1 cm/s AV Peak Gradient 18.3 mmHg AV Mean Velocity 173.4 cm/s AV Mean Gradient 13.3 mmHg AV Velocity Time Integral 50.4 cm LVOT Peak Velocity 95.2 cm/s LVOT Peak Gradient 3.6 mmHg AV Area Cont Eq pk 1.2 cm??? MV Peak Velocity 102.1 cm/s MV Peak Gradient 4.2 mmHg MV Mean Velocity 46.7 cm/s MV Mean Gradient 1.2 mmHg MV Velocity Time Integral 38.1 cm MR Peak Velocity 549.1 cm/s MR Peak Gradient 120.6 mmHg Mitral E Point Velocity 97.2 cm/s Mitral A Point Velocity 99.9 cm/s Mitral E to A Ratio 1.0 MV Deceleration Time 242.3 ms TR Peak Velocity 228.5 cm/s TR Peak Gradient 20.9 mmHg Right Ventricular Systolic Press 26.2 mmHg PV Peak Velocity 82.7 cm/s PV Peak Gradient 2.7 mmHg FINDINGS Left Ventricle Mildly increased septal wall thickness. Mildly increased posterior wall thickness. Left ventricular ejection fraction is estimated at_55-60 %. Right Ventricle Normal right ventricular size. RVSP= 34mmhg Right Atrium Normal right atrial size. Left Atrium Mild Left atrial dilatation. LA volume index= 36ml/m2 Mitral Valve Mitral valve thickened. Moderate MR. Aortic Valve Mild AV calcification/ sclerosis.no aortic regurgitation. Tricuspid Valve Tricuspid valve not well visualized. Mild TR. Pulmonic Valve Pulmonic valve not well visualized. No pulmonic regurgitation. Pericardium Normal pericardium. Aorta Normal size aortic root and proximal ascending aorta. CONCLUSIONS Preserved LV systolic function Moderate mitral regurgitation Previewed by: Dr. Elver Shaikh MD (Electronically Signed) Final Date: 20 September 2022 13:12
== END 2022-09-19 17:50 | disposition home or self-care (01) ==
LOC: EC 10:18 → 6NMEDSUR 12:07
PROVIDERS: ADMIT Hospitalist; ATTEND Hospitalist
DX: I20.0 Unstable angina (principal); I10 Essential (primary) hypertension; E78.00 Pure hypercholesterolemia, unspecified; I08.0 Rheumatic disorders of both mitral and aortic valves; K21.9 Gastro-esophageal reflux disease without esophagitis; E03.9 Hypothyroidism, unspecified; J44.9 Chronic obstructive pulmonary disease, unspecified; M19.91 Primary osteoarthritis, unspecified site; F32.A Depression, unspecified; F41.9 Anxiety disorder, unspecified; Z79.890 Hormone replacement therapy; Z79.1 Long term (current) use of non-steroidal anti-inflammatories (NSAID); Z79.899 Other long term (current) drug therapy; Z88.0 Allergy status to penicillin; Z88.1 Allergy status to other antibiotic agents; Z88.2 Allergy status to sulfonamides; Z90.49 Acquired absence of other specified parts of digestive tract; Z98.890 Other specified postprocedural states; Z87.891 Personal history of nicotine dependence
CPT/HCPCS: 96372 ×2; 99285; 36415; 94640 ×2; 93005; 93306; 80061; 80053; 83735; 84484; 85025; 85610; 85730; 71046; G0378 ×2; J1650 ×2

== ENCOUNTER 2023-01-07 17:58 | Emergency (ER) | payer MEDICARE ==
[2023-01-07 18:28] VITALS: RESP 18
[2023-01-07] MEDS ORDERED: HYDROcodone/APAP 5-325MG 1 EACH TAB PO STA (19:10)
--- NOTE | 2023-01-07 19:47 | ED ---
Fall HPI - General Chief Complaint: Fall Stated Complaint: Fall, Head injury Time Seen by Provider: 01/07/23 19:02 Source: patient Mode of arrival: ambulatory - History of Present Illness Initial Comments: 82-year-old female presenting for evaluation post fall. Patient tripped and fell outside while chasing her dog. Patient has multiple abrasions with bruising to the face. No loss of consciousness or blood thinners. No chest pain, difficulty breathing, abdominal pain. No extremity pain. No numbness, tingling, weakness, nausea, vomiting, dizziness - Related Data Home Medications Medication Instructions Recorded Confirmed Albuterol Sulfate [Albuterol 2 puff PO RT-Q6H PRN 08/10/22 09/18/22 Sulfate Hfa] Atorvastatin [Lipitor] 40 mg PO HS 08/10/22 09/18/22 Levothyroxine Sodium [Synthroid] 100 mcg PO DAILY 08/10/22 09/18/22 Meloxicam [Mobic] 7.5 mg PO DAILY 08/10/22 09/18/22 Metoprolol Succinate (ER) [Toprol 25 mg PO DAILY 08/10/22 09/18/22 XL] Montelukast [Singulair] 10 mg PO HS 08/10/22 09/18/22 Omeprazole [PriLOSEC] 20 mg PO DAILY 08/10/22 09/18/22 Sertraline [Zoloft] 50 mg PO DAILY 08/10/22 09/18/22 Umeclidinium Brm/Vilanterol Tr 1 puff INHALATION RT-DAILY 08/10/22 09/18/22 [Anoro Ellipta 62.5-25 Mcg INH] Previous Rx's Medication Instructions Recorded Aspirin 81 mg PO DAILY tab 09/19/22 Nitroglycerin Sl Tabs [Nitrostat] 0.4 mg SUBLINGUAL Q5M PRN #30 tab 09/19/22 HYDROcodone/APAP 5-325MG [[place] 1 tab PO Q6HR PRN 3 Days #12 tab 01/07/23 5-325] Allergies Allergy/AdvReac Type Severity Reaction Status Date / Time ciprofloxacin [From Cipro] AdvReac Rash/Hives Verified 01/07/23 18:14 nitrofurantoin AdvReac Rash/Hives Verified 01/07/23 18:14 [From Macrobid] Penicillins AdvReac Rash/Hives Verified 01/07/23 18:14 Sulfa (Sulfonamide AdvReac Rash/Hives Verified 01/07/23 18:14 Antibiotics) Review of Systems ROS Statement: Those systems with pertinent positive or pertinent negative responses have been documented in the HPI. ROS Other: All systems not noted in ROS Statement are negative. Past Medical History Past Medical History: Hyperlipidemia, Hypertension, Thyroid Disorder Additional Past Medical History / Comment(s): arotic stenosis, hypothyroid History of Any Multi-Drug Resistant Organisms: None Reported Past Surgical History: Cholecystectomy Additional Past Surgical History / Comment(s): [facility] surgery at [facility] ([facility]) Past Anesthesia/Blood Transfusion Reactions: No Reported Reaction Past Psychological History: Anxiety Smoking Status: Former smoker Past Alcohol Use History: None Reported Past Drug Use History: None Reported General Exam Limitations: no limitations General appearance: alert, in no apparent distress Expanded Head exam: Present: abrasion, contusion, hematoma. Absent: raccoon eyes, chicas's sign Eye exam: Present: normal appearance, PERRL, EOMI. Absent: scleral icterus, conjunctival injection, periorbital swelling Neck exam: Present: normal inspection, full ROM. Absent: tenderness Respiratory exam: Present: normal lung sounds bilaterally. Absent: respiratory distress, wheezes, rales, rhonchi, stridor Cardiovascular Exam: Present: regular rate, normal rhythm, normal heart sounds. Absent: systolic murmur, diastolic murmur, rubs, gallop, clicks Neurological exam: Present: alert, oriented X3 Expanded Patient oriented to: Present: person, place, time Speech: Present: fluid speech Cranial nerves: EOM's Intact: Normal Motor strength exam: RUE: 5, LUE: 5, RLE: 5, LLE: 5 Eye Response: (4) open spontaneously Motor Response: (6) obeys commands Verbal Response: (5) oriented [place] Total: 15 Psychiatric exam: Present: normal affect, normal mood Skin exam: Present: warm, dry, abrasion Course Vital Signs 01/07/23 01/07/23 01/07/23 18:11 19:18 20:58 Temperature 98.7 F 98.9 F Pulse Rate 68 72 78 Respiratory 18 18 18 Rate Blood Pressure 159/76 169/80 128/73 O2 Sat by Pulse 97 97 94 L Oximetry Medical Decision Making - Medical Decision Making Was pt. sent in by a medical professional or institution ([facility] El[facility], [employer]OTTLE [employer], urgent care, hospital, or assisted...) When possible be specific @ -No Did you speak to anyone other than the patient for history (EMS, parent, family, police, friend...)? What history was obtained from this source @ -No Did you review nursing and triage notes (agree or disagree)? Why? @ -I reviewed and agree with nursing and triage notes Were old charts reviewed (outside hosp., previous admission, EMS record, old EKG, old radiological studies, urgent care reports/EKG's, assisted records)? Report findings @ -No old charts were reviewed Differential Diagnosis (chest pain, altered mental status, abdominal pain women, abdominal pain men, vaginal bleeding, weakness, fever, dyspnea, syncope, headache, dizziness, GI bleed, back pain, seizure, CVA, palpatations, mental health, musculoskeletal)? @ -Differential includes concussion, intracranial hemorrhage, cervical spine fracture, facial bone fracture, this is not an all inclusive list EKG interpreted by me (3pts min.). @ -As above X-rays interpreted by me (1pt min.). @ -None done CT interpreted by me (1pt min.). @ -No acute intracranial process. Bilateral nasal bone fractures with displacement on the left. Right frontal scalp edema/hematoma. 9 mm right upper lobe pulmonary nodule further evaluation with PT/CT is recommended. Nonspecific white matter changes, likely secondary to chronic small vessel ischemic disease. No evidence of cervical spine fracture. Moderate to severe multilevel degenerative disc disease. U/S interpreted by me (1pt. min.). @ -None done What testing was considered but not performed or refused? (CT, X-rays, U/S, labs)? Why? @ -None What meds were considered but not given or refused? Why? @ -None Did you discuss the management of the patient with other professionals (professionals i.e. [facility]EV[facility] Elkins, BOTTLE DEALER, lab, RT, psych nurse, social security specialist, window shade ring coverer, teacher, deportation officer, outsole caser)? Give summary @ -No Was smoking cessation discussed for >3mins.? @ -No Was critical care preformed (if so, how long)? @ -No Were there social determinants of health that impacted care today? How? (Homelessness, low income, unemployed, alcoholism, drug addiction, t ransportation, low edu. Level, literacy, decrease access to med. care, [facility], rehab)? @ -No Was there de-escalation of care discussed even if they declined (Discuss DNR or withdrawal of care, Hospice)? DNR status @ -No What co-morbidities impacted this encounter? (DM, HTN, Smoking, COPD, CAD, Cancer, CVA, ARF, Chemo, Hep., AIDS, mental health diagnosis, sleep apnea, morbid obesity)? @ -None Was patient admitted / discharged? Hospital course, mention meds given and route, prescriptions, significant lab abnormalities, going to OR and other pertinent info. @ -82-year-old female presenting with chief complaint of head injury after tripping and falling today while chasing her dog. No loss of consciousness or blood thinners. No focal neurological deficits. Patient does have several abrasions and bruises to the face. She has a hematoma to the forehead and sw elling to the lips. No repairable lacerations. CT is positive for nasal bone fracture. Patient is educated on today's findings. Instructed to ice any areas of swelling, use Motrin and Tylenol as needed for pain. Follow-up with ENT. Follow-up with PCP. Report back to ER with any new or worsening symptoms. Discussed return parameters and answered all questions. Patient conveyed verbal understanding and agreed to the plan. I discussed this case in detail with my attending Dr. Andino Undiagnosed new problem with uncertain prognosis? @ -No Drug Therapy requiring intensive monitoring for toxicity (Heparin, Nitro, Insulin, Cardizem)? @ -No Were any procedures done? @ -No Diagnosis/symptom? @ -Head Injury, nasal bone fracture Acute, or Chronic, or Acute on Chronic? @ -Acute Uncomplicated (without systemic symptoms) or Complicated (systemic symptoms)? @ -Uncomplicated Side effects of treatment? @ -No Exacerbation, Progression, or Severe Exacerbation? @ -No Poses a threat to life or bodily function? How? (Chest pain, [place], [place], pneumonia, PE, COPD, DKA, ARF, appy, cholecystitis, CVA, Diverticulitis, Homicidal, Suicidal, threat to staff... and all critical care pts) @ -No Disposition Clinical Impression: Nasal bone fracture, Head injury Disposition: HOME SELF-CARE Condition: Good Instructions (If sedation given, give patient instructions): Nasal Fracture (ED), Fall Prevention for Older Adults (ED), Head Injury (ED) Additional Instructions: Follow-up with PCP and ENT. Report back to ER with any new or worsening symptoms. Take Motrin and Tylenol as needed for pain control. Ice injuries. Use Vaseline or other moisture barrier to help with healing abrasions. Prescriptions: HYDROcodone/APAP 5-325MG [[place] 5-325] 1 tab PO Q6HR PRN 3 Days #12 tab PRN Reason: Pain Is patient prescribed a controlled substance at d/c from ED?: No Referrals: Carlos Moon DO [Primary Care Provider] - 1-2 days Zaire Licona MD [STAFF PHYSICIAN] - 1-2 days Time of Disposition: 20:26
--- NOTE | 2023-01-07 20:08 | CT ---
EXAMINATION TYPE: CT brain cspine wo con, CT facial bones wo con CT DLP: 978.8 (accession [id number]), 978.8. (accession [id number]) mGycm, Automated exposure control for dose reduction was used. DATE OF EXAM: 01/07/2023 7:50 PM COMPARISON: 08/10/2022 CLINICAL INDICATION:Female, 82 years old with history of fall; PAIN AND FACIAL BRUISING AFTER FALL. TECHNIQUE: Brain: Multiple axial CT images of the brain were obtained without IV contrast. Cspine: Axial CT images from the skull base to the inferior aspect of T2 we obtained without intraven ous contrast. Coronal and sagittal reformatted images were also reviewed. Facial: Axial CT imaging of the facial structures with sagittal coronal reformats. FINDINGS: Brain: Extra-axial spaces: No abnormal extra-axial fluid collections. Ventricular system: Dilatation in proportion to cerebral atrophy. Cerebral parenchyma: Cerebral atrophy. No acute intraparenchymal hemorrhage or mass effect. The fischer -white junction is well differentiated. Scattered hypoattenuating areas are seen within the white mat ter. Cerebellum: Unremarkable. Mass effect: No evidence of midline shift. Intracranial vasculature: Atherosclerotic calcifications of the intracranial vessels. Soft tissues: Normal. Calvarium/osseous structures: No depressed skull fracture. Paranasal sinuses and mastoid air cells: Clear. Visualized orbits: Bilaterally aphakia. Cervical spine: Fracture: None. Osseous structures: Multilevel degenerative disc disease changes with endplate spurring and disc oste ophyte complex's. Vertebral alignment: Within normal limits. Spinal canal/Neural Foramina: Disc osteophyte complexes at C3-C7 With at least mild spinal canal sten osis. No evidence for significant neural foraminal stenosis. Neck soft tissues: Prevertebral soft tissues are within normal limits. Other: The airway is patent. 9 mm right upper lobe pulmonary nodule. Facial: Deformity to the nasal bone left greater than right with associated soft tissue edema. There is edema of the right frontal scalp small hematoma measuring 14 x 7 mm. The orbital contents are unre markable.The temporal-mandibular joints appear symmetric. The visualized portion of the paranasal sin uses appear clear. IMPRESSION: 1. No acute intracranial process. 2. Bilateral nasal bone fractures with displacement on the left. 3. Right frontal scalp edema/hematoma. 4. 9 mm right upper lobe pulmonary nodule further evaluation with PET/CT is recommended. 5. Nonspecific white matter changes, likely secondary to chronic small vessel ischemic disease. 6. No evidence of cervical spine fracture. 7. Moderate to severe multilevel degenerative disc disease.
[2023-01-07 21:09] VITALS: BP 128/73; PULSE 78; TEMP 98.9
== END 2023-01-07 21:00 | disposition home or self-care (01) ==
LOC: EC 17:58
DX: S02.2XXA Fracture of nasal bones, initial encounter for closed fracture (principal); I10 Essential (primary) hypertension; E07.9 Disorder of thyroid, unspecified; E78.5 Hyperlipidemia, unspecified; F41.9 Anxiety disorder, unspecified; Z87.891 Personal history of nicotine dependence; Z79.899 Other long term (current) drug therapy; Z88.0 Allergy status to penicillin; Z88.2 Allergy status to sulfonamides; Z88.8 Allergy status to other drugs, medicaments and biological substances; W01.0XXA Fall on same level from slipping, tripping and stumbling without subsequent striking against object, initial encounter
CPT/HCPCS: 70450; 70486; 72125; 99284